=== PATIENT | female | born 1975 | race African-American/Black ===

== ENCOUNTER 2016-04-26 20:39 | Emergency (ER) | payer OTHER ==
[~2016-04-26] VITALS: Ht 162.6 cm; Wt 95.3 kg
[~2016-04-26 20:39] MED LIST: BENADRYL25 MG ORAL; KEFLEX500 MG ORAL; NORCO 5-325 TA1 EACH ORAL; PHENERGAN6.25 MG/5 ORAL; TESSALON PERLE100 M2 ORAL; TRIAMCINOLONE A80 GM TP
[2016-04-26 21:12] VITALS: BP 134/85
--- NOTE | 2016-04-26 21:32 | Emergency Room Report ---
History of Present Illness General Chief Complaint: Sore Throat Source: Patient Present Illness [facility] The patient presents with sore throat for 2 days. Her daughter is here also and has been evaluated and felt to have strep. The mom denies any fevers. She states the pain is 8/10 and burning. She is able to swallow. In addition she has inflammation under her armpits the program director group work as taking care of. The swelling is worse at this time and she feels she needs antibiotics. No NVD, joint pain, CP, SOB, cough, dyspnea, rashes (other than armpits), MARTINEZ, dysuria. Allergies: Coded Allergies: No Known Allergies (Unverified , 08/06/14) Patient History Past Medical History: see triage record Social History: Denies: smoking Social History Narrative with daughter Last Menstrual Period: 04/24/15 Now: No Reviewed Nursing Documentation: PMH: Agreed, PSxH: Agreed Nursing Documentation-PMH Past Medical History: No Stated History Hx Hypertension: Yes Review of Systems All Other Systems: negative except mentioned in HPI Physical Exam Vital Signs Date Time Temp Pulse Resp B/P Pulse Ox O2 Delivery O2 Flow Rate FiO2 04/26/16 20:59 97.9 77 16 134/85 100 04/26/16 21:12 Room Air Sp02 EP Interpretation: reviewed, normal General Appearance: well appearing, no apparent distress, GCS 15, non-toxic Head: normocephalic, atraumatic Eyes: bilateral eye PERRL, bilateral eye normal inspection ENT: pharyngeal erythema Neck: full range of motion, supple Respiratory: no respiratory distress, speaking full sentences Cardiovascular #2: 2+ radial (L) Gastrointestinal: normal inspection Musculoskeletal: digits/nails normal, gait/station normal, normal range of motion, no calf tenderness Neurologic: alert, normal gait, grossly normal Psychiatric: mood/affect normal Skin: other - inflamation armpits Medical Decision Making Diagnostic Impression: Primary Impression: Pharyngitis Qualified Codes: J02.9 - Acute pharyngitis, unspecified Additional Impression: Hydradenitis ER Course Patient presents with sore throat with daughter with strep. Clinically, suspect strep. Other etiologies possibly viral. As daughter with strep, will treat with antibiotics. As armpits also inflamed, will treat with MRSA coverage (bactrim). Patient stable for outpatient observation and treatment. Last Vital Signs Date Time Temp Pulse Resp B/P Pulse Ox O2 Delivery O2 Flow Rate FiO2 04/26/16 22:10 97.9 80 16 134/85 100 Room Air Status: unchanged Disposition: HOME, SELF-CARE Condition: Stable Scripts Ibuprofen* (MOTRIN*) 600 Mg Tablet 600 MG ORAL Q6H Y for For Pain, #20 TAB Prov: Florentin Melendez M.D. 04/26/16 Trimethoprim/Sulfamethoxazole 160/800* (BACTRIM DS TABLET*) 1 Each Tablet 1 TAB ORAL TWICE A DAY, #14 TAB Prov: Florentin Melendez M.D. 04/26/16 Florentin Melendez M.D. Apr 26, 2016 21:32
[2016-04-26] MEDS ORDERED: IBUPROFEN600 MG ORAL (21:35)
[2016-04-26] MEDS ORDERED: BACTRIM DS TAB1 EAC1 ORAL (21:35)
[2016-04-26] MEDS ORDERED: Bactrim DS (160mg/800mg) tab ORAL ONE (21:45)
[2016-04-26 22:10] VITALS: BP 134/85
== END 2016-04-26 22:19 | disposition home or self-care (01) ==
LOC: EMR 21:29
DX: J02.9 Acute pharyngitis, unspecified (principal); L73.2 Hidradenitis suppurativa; I10 Essential (primary) hypertension
CPT/HCPCS: 99282

== ENCOUNTER 2016-05-23 19:26 | Emergency (ER) | payer OTHER ==
[~2016-05-23] VITALS: Ht 162.6 cm; Wt 86.2 kg
[~2016-05-23 19:26] MED LIST changes: +BACTRIM DS TAB1 EAC1 ORAL; +IBUPROFEN600 MG ORAL
[2016-05-23] MEDS ORDERED: TRIAMTERENE-HC1 EAC7 ORAL (19:39)
[2016-05-23] MEDS ORDERED: TRUVADA 200 MG1 EAC1 ORAL (19:39)
[2016-05-23] MEDS ORDERED: PREZCOBIX 8001 EACH PO (19:39)
--- NOTE | 2016-05-23 20:04 | Emergency Room Report ---
History of Present Illness General Chief Complaint: Upper Respiratory Illness Present Illness HPI 41-year-old female presents to emergency Department complaining of dry cough x2 days in addition to swelling erythema and tenderness under the left axilla x4 days. Patient denies nausea vomiting fevers or chills. Patient does report that she has frequent infections/abscess is in the axilla bilaterally and sees a utility sales and service manager who has been doing intralesional steroid injections. Patient denies productive sputum, however she does report feeling fine and her throat that she has been unable to cough up and out. Patient has been using over-the- counter cough syrup with no relief. She denies history of asthma, COPD or history of smoking. Denies CP, Palpitations, LOC, AMS, dizziness, Changes in Vision, Sensation, paresthesias, or a sudden severe headache. Allergies: Coded Allergies: No Known Allergies (Unverified , 08/06/14) Patient History Past Medical History: see triage record Past Surgical History: none Pertinent Family History: none Last Menstrual Period: May Now: No Immunizations: UTD Reviewed Nursing Documentation: PMH: Agreed, PSxH: Agreed Nursing Documentation-PMH Hx Hypertension: Yes Review of Systems All Other Systems: negative except mentioned in HPI Physical Exam Vital Signs Date Time Temp Pulse Resp B/P Pulse Ox O2 Delivery O2 Flow Rate FiO2 05/23/16 19:31 97.9 88 16 122/72 100 Room Air Sp02 EP Interpretation: reviewed, normal General Appearance: no apparent distress, alert, GCS 15, non-toxic Head: normocephalic, atraumatic Eyes: bilateral eye PERRL, bilateral eye normal inspection ENT: hearing grossly normal, normal pharynx, no angioedema, normal voice, TMs + canals normal, uvula midline, moist mucus membranes Neck: full range of motion, no meningismus, no bony tend, supple/symm/no masses Respiratory: chest non-tender, lungs clear, normal breath sounds, speaking full sentences Cardiovascular #1: regular rate, rhythm, no edema Gastrointestinal: no rebound Musculoskeletal: back normal, gait/station normal, normal range of motion, non- tender, no calf tenderness Neurologic: alert, oriented x3, responsive, motor strength/tone normal, sensory intact, speech normal Psychiatric: judgement/insight normal, memory normal, mood/affect normal, no suicidal/homicidal ideation Skin: normal color, no rash, warm/dry, well hydrated, other - localized area of erythema, induration and TTP in the left axilla approximately 1.5cm in size. Lymphatic: no adenopathy Procedures Incision and Drainage Incision and Drainage : Consent: Verbal Site: left axilla Blade Size: 11 I & D Procedure: betadine prep Wound Location: axilla Wound's Depth, Shape: superficial Wound Length (cm): 1 Wound Explored: contaminated - purulent d/c Irrigated w/ Saline (ccs): 30 Anesthesia: Lidocaine w/ Epi Volume Anesthetic (ccs): 1 Splint Applied?: No Sling Applied?: No Patient Tolerated: Well Complications: None Medical Decision Making PA Attestation Dr. Melendez is my supervising Physician whom patient management has been discussed with. Diagnostic Impression: Primary Impression: Hydradenitis Additional Impression: Bronchitis, acute Qualified Codes: J20.9 - Acute bronchitis, unspecified ER Course 41-year-old female presents to emergency Department complaining of dry cough x2 days in addition to swelling erythema and tenderness under the left axilla x4 days. Patient denies nausea vomiting fevers or chills. Ddx considered but are not limited to cellulitis, abscess, hydradenitis, URI, bronchitis, Pneumonia, asthma. Vital signs: are WNL, pt. is afebrile H&PE are most consistent with acute viral bronchitis, in addition to hydradenitis of the left axilla. ORDERS: none required at this time, the diagnosis is clinical ED INTERVENTIONS: -I & D. DISCHARGE: At this time pt. is stable for d/c to home. Will provide printed patient care instructions, and any necessary prescriptions. Care plan and follow up instructions have been discussed with the patient prior to discharge. Last Vital Signs Date Time Temp Pulse Resp B/P Pulse Ox O2 Delivery O2 Flow Rate FiO2 05/23/16 19:39 88 16 Room Air 05/23/16 19:31 97.9 122/72 100 Disposition: HOME, SELF-CARE Condition: Stable Referrals: [facility] (PCP) Patient Instructions: Abscess, [id number], Acute Bronchitis, [id number] Additional Instructions: Take medications as directed. Follow up with PCP in 3-5 days Return sooner to ED if new symptoms occur, or current symptoms become worse. Do not drink alcohol, drive, or operate heavy machinery while taking Cough Syrup as this may cause drowsiness. - Please note that this Emergency Department Report was dictated using Minubetoolmaker helper technology software, occasionally this can lead to erroneous entry secondary to interpretation by the dictation equipment. Ciara Rosa May 23, 2016 20:04
[2016-05-23] MEDS ORDERED: BACTRIM DS TAB1 EAC1 ORAL (20:18)
[2016-05-23] MEDS ORDERED: CEPHALEXIN500 MG ORAL (20:18)
[2016-05-23] MEDS ORDERED: ALBUTEROL SULF8.5 GM INH (20:18)
[2016-05-23] MEDS ORDERED: PROMETHAZINE-C118 M1 ORAL (20:18)
[2016-05-23 20:53] VITALS: BP 150/99
== END 2016-05-23 20:53 | disposition home or self-care (01) ==
LOC: EMR 19:50
DX: L73.2 Hidradenitis suppurativa (principal); J20.9 Acute bronchitis, unspecified; I10 Essential (primary) hypertension
CPT/HCPCS: 10060

== ENCOUNTER 2016-08-16 20:30 | Emergency (ER) | payer OTHER ==
[~2016-08-16] VITALS: Ht 162.6 cm; Wt 97.5 kg
[~2016-08-16 20:30] MED LIST changes: +ALBUTEROL SULF8.5 GM INH; +CEPHALEXIN500 MG ORAL; +PREZCOBIX 8001 EACH PO; +PROMETHAZINE-C118 M1 ORAL; +TRIAMTERENE-HC1 EAC7 ORAL; +TRUVADA 200 MG1 EAC1 ORAL
[2016-08-16] MEDS ORDERED: Morphine Sulfate 4mg/ml Inj IVP ONE (21:00)
[2016-08-16] MEDS ORDERED: Ketorolac 30mg Inj IV ONE (21:00)
--- NOTE | 2016-08-16 21:11 | Emergency Room Report ---
History of Present Illness General Chief Complaint: Back Pain-No Injury Source: Patient Present Illness HPI The patient presents with 2 problems. First is that she's had a headache that' s been intermittent for a week. The second is for last 3 days she's had left flank pain and dysuria. She thinks she's had chills but no documented fever. She denies any nausea at this time. She took ibuprofen 800 mg before coming to the emergency department. The pain is a 7/10 pressure and radiates somewhat from her left flank area into the abdomen. No change in bowels. The patient has had urinary tract infections in the past. Her graft she also is complaining about diarrhea. Her last period was July 24. The second problem is a headache which is pounding frontal nonradiating. She has no weakness. She has lost her appetite. Motrin helped minimally. No change vision, URI sy. LNMP = 07/24. No discharge. No chest pain, cough, rashes other joint pain. She has HIV and is taking antivirals. Allergies: Coded Allergies: No Known Allergies (Unverified , 08/06/14) Patient History Past Medical History: see triage record Social History: Denies: alcohol use, drug use, smoking Social History Narrative Her son brought her here Last Menstrual Period: July Reviewed Nursing Documentation: PMH: Agreed, PSxH: Agreed Nursing Documentation-PMH Hx Hypertension: Yes Review of Systems All Other Systems: negative except mentioned in HPI Physical Exam Vital Signs Date Time Temp Pulse Resp B/P Pulse Ox O2 Delivery O2 Flow Rate FiO2 08/16/16 20:43 98.1 84 16 112/69 96 Room Air Sp02 EP Interpretation: reviewed, normal General Appearance: well appearing, no apparent distress, GCS 15 Head: normocephalic Eyes: bilateral eye PERRL, bilateral eye normal inspection ENT: moist mucus membranes Neck: supple Respiratory: lungs clear, normal breath sounds Cardiovascular #1: regular rate, rhythm Cardiovascular #2: 2+ radial (R) Gastrointestinal: normal inspection, normal bowel sounds, non tender, no mass, non-distended, overweight Genitourinary: CVA tenderness (L) Musculoskeletal: back normal, gait/station normal, normal range of motion Neurologic: alert, oriented x3, science professor III-XII nml as tested, motor strength/tone normal, DTRs symmetric, sensory intact, cerebellar normal, normal gait, speech normal Psychiatric: mood/affect normal Skin: normal inspection, warm/dry Medical Decision Making Diagnostic Impression: Primary Impression: Pyelonephritis Additional Impressions: Hypokalemia Headache Qualified Codes: R51 - Headache ER Course Patient presents with R flank pain and headache. She believes that she has a kidney infection. Differential includes pyelonephritis, urinary tract infection , muscle strain, viral syndrome, diverticulitis amongst others. Evaluation will be with labs and urinalysis. She'll be treated with IV hydration and analgesia. Pyuria without leukocytosis. Rocephin started. Improved. Patient stable for outpatient observation and treatment. Laboratory Tests Test 08/16/16 21:05 08/16/16 21:18 Urine Color Pale yellow Urine Appearance Slightly cloudy Urine pH 5 (4.5-8.0) Urine Specific [place] 1.015 (1.005-1.035) Urine Protein 2+ (NEGATIVE) H Urine Glucose (UA) Negative (NEGATIVE) Urine Ketones Negative (NEGATIVE) Urine Occult Blood 1+ (NEGATIVE) H Urine Nitrite Negative (NEGATIVE) Urine Bilirubin Negative (NEGATIVE) Urine Urobilinogen Normal MG/DL (0.0-1.0) Urine Leukocyte Esterase 1+ (NEGATIVE) H Urine RBC 2-4 /HPF (0 - 2) H Urine WBC 30-40 /HPF (0 - 2) H Urine Squamous Epithelial Cells Many /LPF (NONE/OCC) H Urine Bacteria Many /HPF (NONE) H Urine HCG, Qualitative Negative White Blood Count 8.6 K/UL (4.8-10.8) Red Blood Count 4.30 M/UL (4.20-5.40) Hemoglobin 13.6 G/DL (12.0-16.0) Hematocrit 39.0 % (37.0-47.0) Mean Corpuscular Volume 91 FL (80-99) Mean Corpuscular Hemoglobin 31.5 PG (27.0-31.0) H Mean Corpuscular Hemoglobin Concent 34.7 G/DL (32.0-36.0) Red Cell Distribution Width 12.9 % (11.6-14.8) Platelet Count 297 K/UL (150-450) Mean Platelet Volume 6.0 FL (6.5-10.1) L Neutrophils (%) (Auto) 55.9 % (45.0-75.0) Lymphocytes (%) (Auto) 35.5 % (20.0-45.0) Monocytes (%) (Auto) 6.5 % (1.0-10.0) Eosinophils (%) (Auto) 0.9 % (0.0-3.0) Basophils (%) (Auto) 1.2 % (0.0-2.0) Prothrombin Time 10.1 SEC (9.30-11.50) Prothrombin Time INR 1.0 (0.9-1.1) PTT 25 SEC (23-33) Sodium Level 138 mEQ/L (135-145) Potassium Level 3.3 mEQ/L (3.4-4.9) L Chloride Level 100 mEQ/L (98-107) Carbon Dioxide Level 25 mEQ/L (20-30) Anion Gap 13 (5-15) Blood Urea Nitrogen 12 mg/dL (7-23) Creatinine 1.4 mg/dL (0.5-0.9) H Estimate Glomerular Filtration Rate 50.1 mL/min (>60) Glucose Level 77 mg/dL (74-106) Calcium Level 9.1 mg/dL (8.6-10.2) Total Bilirubin 0.8 mg/dL (0.0-1.2) Aspartate Amino Transferase (AST) 74 U/L (5-40) H Alanine Aminotransferase (ALT) 85 U/L (3-33) H Alkaline Phosphatase 90 U/L (35-104) Total Protein 9.3 g/dL (6.6-8.7) H Albumin 3.9 g/dL (3.5-5.2) Globulin 5.4 g/dL Albumin/Globulin Ratio 0.7 (1.0-2.7) L Lipase 36 U/L (< 60) Last Vital Signs Date Time Temp Pulse Resp B/P Pulse Ox O2 Delivery O2 Flow Rate FiO2 08/16/16 23:35 98.1 94 14 123/85 98 Room Air Status: improved Disposition: HOME, SELF-CARE Condition: Improved Scripts Tramadol Hcl* (ULTRAM*) 50 Mg Tablet 50 MG ORAL Q6H Y for For Pain, #10 TAB 0 Refills Prov: Florentin Melendez M.D. 08/16/16 Ibuprofen* (MOTRIN*) 600 Mg Tablet 600 MG ORAL Q6H Y for For Pain, #16 TAB Prov: Florentin Melendez M.D. 08/16/16 Cephalexin* (KEFLEX*) 500 Mg Capsule 500 MG ORAL Q6H, #40 CAP 0 Refills Prov: Florentin Melendez M.D. 08/16/16 Florentin Melendez M.D. August 16, 2016 21:11
[2016-08-16 21:14] LABS: APPEARANCE,URINE SLIGHTLY CLOUDY; KETONES,URINE NEGATIVE (NEGATIVE); LEUKOCYTE ESTERASE ,URINE 1+ (NEGATIVE); NITRITE,URINE NEGATIVE (NEGATIVE); PH,URINE 5 (4.5-8.0); PROTEIN,URINE 2+ (NEGATIVE); UROBILINOGEN,URINE NORMAL MG/DL (0.0-1.0)
[2016-08-16 21:25] VITALS: BP 133/83
[2016-08-16 21:40] LABS: BACTERIA,URINE MANY /HPF; SQUAMOUS EPITHELIAL CELL,UR MANY /LPF (NONE/OCC); WBC,URINE 30-40 /HPF (0 - 2)
[2016-08-16 21:41] LABS: BASOPHILS % (AUTO) 1.2 % (0.0-2.0); EOSINOPHILS % (AUTO) 0.9 % (0.0-3.0); LYMPHOCYTES % (AUTO) 35.5 % (20.0-45.0); MEAN CORPUSCULAR HEMOGLOBIN 31.5 PG (27.0-31.0); MEAN CORPUSCULAR HGB CONC 34.7 G/DL (32.0-36.0); MEAN CORPUSCULAR VOLUME 91 FL (80-99); MONOCYTES % (AUTO) 6.5 % (1.0-10.0); NEUTROPHILS % (AUTO) 55.9 % (45.0-75.0); PLATELET COUNT 297 K/UL (150-450); RED CELL DISTRIBUTION WIDTH 12.9 % (11.6-14.8); WHITE BLOOD COUNT 8.6 K/UL (4.8-10.8)
[2016-08-16 21:52] LABS: PROTHROMBIN TIME 10.1 SEC (9.30-11.50)
[2016-08-16 22:13] LABS: CALCIUM 9.1 mg/dL (8.6-10.2); CREATININE 1.4 mg/dL (0.5-0.9); GLOMERULAR FILTRATION RATE 50.1 mL/min (>60); POTASSIUM 3.3 mEQ/L (3.4-4.9); TOTAL PROTEIN 9.3 g/dL (6.6-8.7)
[2016-08-16] MEDS ORDERED: cefTRIAXone 1 GM in NS 55 ML IVPB ONE (22:15)
[2016-08-16 22:36] LABS: ALBUMIN/GLOBULIN RATIO 0.7 (1.0-2.7)
[2016-08-16] MEDS ORDERED: KEFLEX500 MG ORAL (23:24)
[2016-08-16] MEDS ORDERED: TRAMADOL HCL50 MG ORAL (23:24)
[2016-08-16] MEDS ORDERED: IBUPROFEN600 MG ORAL (23:24)
[2016-08-16] MEDS ORDERED: KCl 10% 40mEq/30ml liquid ORAL STA (23:28)
[2016-08-16 23:35] VITALS: BP 123/85
== END 2016-08-16 23:35 | disposition home or self-care (01) ==
LOC: EMR 21:10
DX: N12 Tubulo-interstitial nephritis, not specified as acute or chronic (principal); E87.6 Hypokalemia; R19.7 Diarrhea, unspecified; R51 Headache; I10 Essential (primary) hypertension
CPT/HCPCS: 36415; 80053; 81003; 81025; 83690; 85025; 85610; 85730; 87086; 87181; 96374; 96375; 99284; J0696; J1885; J2270; J2405

== ENCOUNTER 2016-09-22 20:59 | Emergency (ER) | payer OTHER ==
[~2016-09-22] VITALS: Ht 162.6 cm; Wt 90.7 kg
[~2016-09-22 20:59] MED LIST changes: +TRAMADOL HCL50 MG ORAL
[2016-09-22 22:00] VITALS: BP 153/98
[2016-09-22] MEDS ORDERED: BACTRIM DS TAB1 EAC1 ORAL (22:21)
[2016-09-22 22:45] VITALS: BP 122/86
--- NOTE | 2016-09-22 23:00 | Emergency Room Report ---
History of Present Illness General Chief Complaint: Skin Rash/Abscess Source: Patient Present Illness HPI 41YOF walk-in with 3-4 days worsening swelling, pain to bilateral armpits. History of hidradenitis. States resolution usually with Bactrim. Does not have gen surg physician currently. Denies fever/chills. Allergies: Coded Allergies: No Known Allergies (Unverified , 08/06/14) Patient History Past Medical History: see triage record, old chart reviewed Past Surgical History: none Pertinent Family History: none Social History: Denies: alcohol use, drug use, smoking Last Menstrual Period: LAST WEEK Now: No Immunizations: UTD Reviewed Nursing Documentation: PMH: Agreed, PSxH: Agreed Nursing Documentation-PMH Hx Hypertension: Yes Review of Systems All Other Systems: negative except mentioned in HPI Physical Exam Vital Signs Date Time Temp Pulse Resp B/P Pulse Ox O2 Delivery O2 Flow Rate FiO2 09/22/16 21:25 98.4 82 18 153/98 97 Room Air Sp02 EP Interpretation: reviewed, normal General Appearance: normal inspection, well appearing, no apparent distress, alert, GCS 15, non-toxic Head: normocephalic, atraumatic Eyes: bilateral eye EOMI, bilateral eye PERRL ENT: normal ENT inspection, hearing grossly normal, normal voice Neck: normal inspection, full range of motion, supple, no bony tend Respiratory: normal inspection, lungs clear, normal breath sounds, no respiratory distress, no retraction, no wheezing Cardiovascular #1: regular rate, rhythm, no edema Gastrointestinal: normal inspection, normal bowel sounds, non tender, soft, no guarding, no hernia Genitourinary: no CVA tenderness Musculoskeletal: normal inspection, back normal, normal range of motion, Orlin' s Sign negative Neurologic: normal inspection, alert, oriented x3, responsive, environmental air specialist III-XII nml as tested, motor strength/tone normal, speech normal Psychiatric: normal inspection, judgement/insight normal, mood/affect normal Skin: other - Bilateral armpits: multiple areas of induration and small 1cm abscesses too numerous to count. Medical Decision Making Diagnostic Impression: Primary Impression: Hydradenitis ER Course 41YOF with acute on chronic bilateral armpit hidradenitis suppurativa VSS. Afebrile. No systemic signs and symptoms Rx bactrim Provided contact info for Dr Strange for Surgery consult DC home Last Vital Signs Date Time Temp Pulse Resp B/P Pulse Ox O2 Delivery O2 Flow Rate FiO2 09/22/16 22:45 98.2 79 17 122/86 100 Room Air Status: improved Disposition: HOME, SELF-CARE Condition: Improved Scripts Trimethoprim/Sulfamethoxazole 160/800* (BACTRIM DS TABLET*) 1 Each Tablet 1 TAB ORAL Q12H for 7 Days, #14 TAB 0 Refills Prov: ORLIN BROOKS M.D. 09/22/16 [facility]errals: [facility] (PCP) Patient Instructions: Hidradenitis Suppurativa Additional Instructions: - Take ALL Bactrim as prescribed - Call Dr Strange for followup appointment for hidradenitis. Phone: [phone] ORLIN BROOKS M.D. Sep 22, 2016 22:59
== END 2016-09-22 22:45 | disposition home or self-care (01) ==
LOC: EMR 22:02
DX: L73.2 Hidradenitis suppurativa (principal); I10 Essential (primary) hypertension
CPT/HCPCS: 99283

== ENCOUNTER 2016-11-19 20:21 | Emergency (ER) | payer OTHER ==
[~2016-11-19] VITALS: Ht 162.6 cm; Wt 90.7 kg
[2016-11-19] MEDS ORDERED: NKM (20:37)
[2016-11-19 21:06] LABS: BASOPHILS % (AUTO) 1.1 % (0.0-2.0); EOSINOPHILS % (AUTO) 1.5 % (0.0-3.0); LYMPHOCYTES % (AUTO) 35.9 % (20.0-45.0); MEAN CORPUSCULAR HEMOGLOBIN 31.8 PG (27.0-31.0); MEAN CORPUSCULAR HGB CONC 34.3 G/DL (32.0-36.0); MEAN CORPUSCULAR VOLUME 92 FL (80-99); MEAN PLATELET VOLUME 6.6 FL (6.5-10.1); MONOCYTES % (AUTO) 6.6 % (1.0-10.0); NEUTROPHILS % (AUTO) 54.8 % (45.0-75.0); PLATELET COUNT 300 K/UL (150-450); RED BLOOD COUNT 4.24 M/UL (4.20-5.40); WHITE BLOOD COUNT 8.6 K/UL (4.8-10.8)
[2016-11-19 21:08] LABS: APPEARANCE,URINE CLEAR; KETONES,URINE NEGATIVE (NEGATIVE); LEUKOCYTE ESTERASE ,URINE 1+ (NEGATIVE); NITRITE,URINE POSITIVE (NEGATIVE); PH,URINE 5 (4.5-8.0); PROTEIN,URINE 3+ (NEGATIVE); UROBILINOGEN,URINE 1 MG/DL (0.0-1.0)
[2016-11-19 21:09] VITALS: BP 119/81
[2016-11-19 21:13] LABS: ICTOTEST POSITIVE
[2016-11-19] MEDS ORDERED: Ketorolac 30mg Inj IV ONE ×2 (21:15)
[2016-11-19 21:24] LABS: WBC,URINE 20-30 /HPF (0 - 2)
[2016-11-19 21:25] LABS: BACTERIA,URINE MODERATE /HPF; SQUAMOUS EPITHELIAL CELL,UR FEW /LPF (NONE/OCC)
[2016-11-19 21:30] LABS: ALANINE AMINOTRANSFERASE 25 U/L (3-33); ALBUMIN/GLOBULIN RATIO 0.6 (1.0-2.7); ANION GAP 9 (5-15); ASPARTATE AMINO TRANSFERASE 37 U/L (5-40); CALCIUM 8.7 mg/dL (8.6-10.2); CARBON DIOXIDE 28 mEQ/L (20-30); CHLORIDE 96 mEQ/L (98-107); GLOMERULAR FILTRATION RATE > 60 mL/min (>60); HEMOLYSIS 10; LIPASE 32 U/L (< 60); POTASSIUM 3.1 mEQ/L (3.4-4.9); SODIUM 133 mEQ/L (135-145); TOTAL PROTEIN 9.6 g/dL (6.6-8.7)
[2016-11-19] MEDS ORDERED: KCl 10% 20 mEq/15ml liquid NG ONE (22:00)
[2016-11-19] MEDS ORDERED: cefTRIAXone 1 GM in NS 55 ML IVPB ONE (22:00)
[2016-11-19] MEDS ORDERED: KEFLEX500 MG ORAL (22:22)
[2016-11-19] MEDS ORDERED: BACTRIM DS TAB1 EAC1 ORAL (22:26)
[2016-11-19 23:10] VITALS: BP 110/78
--- NOTE | 2016-11-19 23:59 | Emergency Room Report ---
History of Present Illness General Chief Complaint: Generalized Weakness Source: Patient Present Illness HPI 41YOF with 1 week of low energy, weakness, dehydration, assoc with dysuria Denies nausea/vomiting, diarrhea, fever/chills, chest pain, SOB, abd pain, sick contacts Allergies: Coded Allergies: No Known Allergies (Unverified , 08/06/14) Patient History Past Medical History: none Past Surgical History: none, other Pertinent Family History: none Social History: Denies: alcohol use, drug use, smoking Last Menstrual Period: 11/09/16 Now: No : 5 Para: 4 Immunizations: UTD Reviewed Nursing Documentation: PMH: Agreed, PSxH: Agreed Nursing Documentation-PMH Hx Hypertension: Yes Review of Systems All Other Systems: negative except mentioned in HPI Physical Exam Vital Signs Date Time Temp Pulse Resp B/P Pulse Ox O2 Delivery O2 Flow Rate FiO2 11/19/16 20:33 98.1 104 14 119/81 97 Room Air Sp02 EP Interpretation: reviewed, normal General Appearance: normal inspection, well appearing, no apparent distress, alert, GCS 15, non-toxic Head: normocephalic, atraumatic Eyes: bilateral eye EOMI, bilateral eye PERRL ENT: normal ENT inspection, hearing grossly normal, normal voice Neck: normal inspection, full range of motion, supple, no bony tend Respiratory: normal inspection, lungs clear, normal breath sounds, no respiratory distress, no retraction, no wheezing Cardiovascular #1: regular rate, rhythm, no edema Gastrointestinal: normal inspection, normal bowel sounds, non tender, soft, no guarding, no hernia Genitourinary: no CVA tenderness Musculoskeletal: normal inspection, back normal, normal range of motion, Orlin' s Sign negative Neurologic: normal inspection, alert, oriented x3, responsive, services clerk III-XII nml as tested, motor strength/tone normal, speech normal Psychiatric: normal inspection, judgement/insight normal, mood/affect normal Skin: normal inspection, normal color, no rash Medical Decision Making Diagnostic Impression: Primary Impression: UTI (urinary tract infection) Qualified Codes: N30.01 - Acute cystitis with hematuria Additional Impressions: Hypokalemia Episode of generalized weakness ER Course Weakness for 1 week - VSS. Afebrile. - Looks well, not systemically ill - UA grossly infected - initial IV Abx given in ED along with Rx Macrobid - HypoK mild, repleted orally in ED DC home PMD followup as needed No leuks or metabolic abnormalities to suggest additional cause No focal neuro deficits Last Vital Signs Date Time Temp Pulse Resp B/P Pulse Ox O2 Delivery O2 Flow Rate FiO2 11/19/16 23:10 98.1 66 14 110/78 97 Room Air Status: improved Disposition: HOME, SELF-CARE Condition: Improved Scripts Trimethoprim/Sulfamethoxazole 160/800* (BACTRIM DS TABLET*) 1 Each Tablet 1 TAB ORAL Q12H for 7 Days, #14 TAB 0 Refills Prov: ORLIN BROOKS M.D. 11/19/16 Cephalexin* (KEFLEX*) 500 Mg Capsule 500 MG ORAL Q12HR for 7 Days, #14 CAP 0 Refills Prov: ORLIN BROOKS M.D. 11/19/16 Patient Instructions: Dysuria Additional Instructions: - Take ALL antibiotics until finished ORLIN BROOKS M.D. Nov 19, 2016 23:59
== END 2016-11-19 22:55 | disposition home or self-care (01) ==
LOC: EMR 20:52
DX: N39.0 Urinary tract infection, site not specified (principal); E87.6 Hypokalemia; R53.1 Weakness; I10 Essential (primary) hypertension
CPT/HCPCS: 36415; 80053; 81003; 81025; 83690; 85025; 87086; 87181; 96374; 96375; 99284; J0696; J1885

== ENCOUNTER 2016-12-18 21:16 | Emergency (ER) | payer OTHER ==
[~2016-12-18] VITALS: Ht 162.6 cm; Wt 103.4 kg
[~2016-12-18 21:16] MED LIST changes: +NKM
[2016-12-18] MEDS ORDERED: DuoNeb 0.5-3(2.5)mg/3ml neb HHN ONE (22:00)
[2016-12-18] MEDS ORDERED: PredniSONE 20mg tab ORAL ONE (22:00)
[2016-12-18] MEDS ORDERED: PREDNISONE20 MG ORAL (22:02)
[2016-12-18] MEDS ORDERED: ALBUTEROL SULF8.5 GM INH (22:02)
--- NOTE | 2016-12-18 22:03 | Emergency Room Report ---
History of Present Illness General Chief Complaint: Upper Respiratory Illness Source: Patient Present Illness HPI This is a 41-year-old female with history of bronchitis. She presents with coughing and shortness of breath the last 2 days. Has runny nose and congestion. No fever but has chills. Worse with exertion. Better with rest. Out of her inhaler. Allergies: Coded Allergies: No Known Allergies (Unverified , 08/06/14) Patient History Past Medical History: see triage record, old chart reviewed Past Surgical History: other Pertinent Family History: none Social History: Denies: smoking Last Menstrual Period: last week Now: No Immunizations: other Reviewed Nursing Documentation: PMH: Agreed, PSxH: Agreed Nursing Documentation-PMH Hx Hypertension: Yes Review of Systems Eye: Denies: eye pain, blurred vision ENT: Denies: ear pain, nose congestion, throat swelling Respiratory: Reports: cough, shortness of breath, wheezing Cardiovascular: Denies: chest pain, palpitations Gastrointestinal: Denies: abdominal pain, diarrhea, nausea, vomiting Musculoskeletal: Denies: back pain, joint pain Skin: Denies: rash Neurological: Denies: headache, numbness Endocrine: Denies: increased thirst, increased urine Hematologic/Lymphatic: Denies: easy bruising All Other Systems: negative except mentioned in HPI Physical Exam Vital Signs Date Time Temp Pulse Resp B/P (MAP) Pulse Ox O2 Delivery O2 Flow Rate FiO2 12/18/16 21:33 98.1 82 18 116/80 97 Room Air vitals normal Sp02 EP Interpretation: reviewed, normal General Appearance: well appearing, no apparent distress, alert Head: normocephalic, atraumatic Eyes: bilateral eye PERRL, bilateral eye EOMI ENT: hearing grossly normal, normal pharynx Neck: full range of motion, supple, no meningismus Respiratory: chest non-tender, wheezing - Slight Cardiovascular #1: regular rate, rhythm, no murmur Gastrointestinal: normal bowel sounds, non tender, no mass, no organomegaly, no bruit, non-distended Musculoskeletal: back normal, gait/station normal, normal range of motion Psychiatric: mood/affect normal Skin: warm/dry Medical Decision Making Diagnostic Impression: Primary Impression: Upper respiratory infection Qualified Codes: J06.9 - Acute upper respiratory infection, unspecified; B97.89 - Other viral agents as the cause of diseases classified elsewhere Additional Impression: Asthma exacerbation ER Course Patient with a viral illness exacerbating her undiagnosed asthma. She said that she has to use her inhaler when she is around smokes and when she a cold. She probably has underlying as on the has not been diagnosed or been diagnosed as bronchitis. We'll discharge home. Better after breathing treatment. No evidence of pneumonia, sepsis, PE, dissection to name a few. Last Vital Signs Date Time Temp Pulse Resp B/P (MAP) Pulse Ox O2 Delivery O2 Flow Rate FiO2 12/18/16 21:35 82 18 Room Air 12/18/16 21:33 98.1 116/80 97 Status: improved Disposition: HOME, SELF-CARE Condition: Stable Scripts Prednisone* (PREDNISONE*) 20 Mg Tablet 60 MG ORAL DAILY, #12 TAB Prov: TR SAINZ M.D. 12/18/16 Albuterol Sulfate* (ALBUTEROL SULFATE MDI*) 8.5 Gm Hfa.aer.ad 2 PUFF INH Q4H Y for cough/wheezing, #1 EA 0 Refills Prov: TR SAINZ M.D. 12/18/16 Patient Instructions: Upper Respiratory Infection, Adult Additional Instructions: Followup with your DrMika in 3-5 days. Return if symptom worsen. TR SAINZ M.D. Dec 18, 2016 22:03
[2016-12-18 22:14] VITALS: BP 115/70
[2016-12-18 22:15] VITALS: BP 115/70
== END 2016-12-18 22:15 | disposition home or self-care (01) ==
LOC: EMR 22:00
DX: J06.9 Acute upper respiratory infection, unspecified (principal); J45.901 Unspecified asthma with (acute) exacerbation
CPT/HCPCS: 94640; 94664; 99284; J7620

== ENCOUNTER 2017-02-18 01:44 | Emergency (ER) | payer OTHER ==
[~2017-02-18] VITALS: Ht 162.6 cm; Wt 106.1 kg
[~2017-02-18 01:44] MED LIST changes: +PREDNISONE20 MG ORAL
[2017-02-18 01:50] VITALS: BP 148/92
--- NOTE | 2017-02-18 01:51 | Emergency Room Report ---
History of Present Illness General Chief Complaint: Abdominal Pain Source: Patient Present Illness HPI [id number] with known HTN presents with polyuria, dysuria, right flank pain for 3 days No fever/chills Associated with nausea/vomiting - last episode 6 hours prior - and diarrhea No foreign travel or sick contacts No previous Abd/pelvic surgery Frequent UTI per patient Allergies: Coded Allergies: No Known Allergies (Unverified , 08/06/14) Patient History Past Medical History: HTN Past Surgical History: none Pertinent Family History: none Last Menstrual Period: feb 09 Now: No : 5 Immunizations: UTD Reviewed Nursing Documentation: PMH: Agreed, PSxH: Agreed Nursing Documentation-PMH Hx Hypertension: Yes Review of Systems All Other Systems: negative except mentioned in HPI Physical Exam Vital Signs Date Time Temp Pulse Resp B/P (MAP) Pulse Ox O2 Delivery O2 Flow Rate FiO2 02/18/17 01:46 97.9 73 18 148/92 99 Room Air Sp02 EP Interpretation: reviewed, normal General Appearance: normal inspection, well appearing, no apparent distress, alert, GCS 15, non-toxic, obese Head: atraumatic Eyes: bilateral eye PERRL, bilateral eye EOMI ENT: normal ENT inspection, hearing grossly normal, normal voice Neck: normal inspection, full range of motion, supple, no bony tend Respiratory: normal inspection, lungs clear, normal breath sounds, no respiratory distress, no retraction, no wheezing Cardiovascular #1: regular rate, rhythm, no edema Gastrointestinal: normal inspection, normal bowel sounds, non tender, soft, no mass, no organomegaly, no guarding, no hernia, no pulsatile mass, no rebound Genitourinary: CVA tenderness (R) Musculoskeletal: normal inspection, back normal, normal range of motion, Orlin' s Sign negative Neurologic: normal inspection, alert, oriented x3, responsive, 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 nml as tested, motor strength/tone normal, speech normal Psychiatric: normal inspection, judgement/insight normal, mood/affect normal Skin: normal inspection, normal color, no rash Medical Decision Making Diagnostic Impression: Primary Impression: Pyelonephritis Additional Impression: Nausea vomiting and diarrhea ER Course UA grossly infected Clinically has pyleo after IVF hydration and IV zofran, tolerating PO Should be able to complete outpatient Abx Initial IV Abx given in ED DC home Close PMD followup Last Vital Signs Date Time Temp Pulse Resp B/P (MAP) Pulse Ox O2 Delivery O2 Flow Rate FiO2 02/18/17 01:46 97.9 73 18 148/92 99 Room Air Status: improved Disposition: HOME, SELF-CARE Scripts Ondansetron Odt* (ZOFRAN ODT*) 4 Mg Tab.rapdis 4 MG ORAL Q12HR Y for Nausea & Vomiting for 7 Days, #14 TAB 0 Refills Prov: ORLIN BROOKS M.D. 02/18/17 Cephalexin* (KEFLEX*) 500 Mg Capsule 500 MG ORAL BID for 7 Days, #14 CAP 0 Refills Prov: ORLIN BROOKS M.D. 02/18/17 ORLIN BROOKS M.D. Feb 18, 2017 01:51
[2017-02-18 02:06] LABS: BILIRUBIN, URINE NEGATIVE (NEGATIVE); GLUCOSE, URINE (UA) NEGATIVE (NEGATIVE); KETONES,URINE NEGATIVE (NEGATIVE); LEUKOCYTE ESTERASE ,URINE 3+ (NEGATIVE); NITRITE,URINE POSITIVE (NEGATIVE); PH,URINE 6.5 (4.5-8.0); PROTEIN,URINE 3+ (NEGATIVE); UROBILINOGEN,URINE 8 MG/DL (0.0-1.0)
[2017-02-18 02:14] LABS: APPEARANCE,URINE CLOUDY; COLOR,URINE YELLOW
[2017-02-18] MEDS ORDERED: ZOFRAN ODT4 MG ORAL (02:25)
[2017-02-18] MEDS ORDERED: KEFLEX500 MG ORAL (02:25)
[2017-02-18] MEDS ORDERED: cefTRIAXone 1 GM in NS 55 ML IVPB ONE (02:30)
[2017-02-18 02:48] LABS: BASOPHILS % (AUTO) 0.6 % (0.0-2.0); HEMATOCRIT 36.8 % (37.0-47.0); HEMOGLOBIN 11.2 G/DL (12.0-16.0); LYMPHOCYTES % (AUTO) 36.7 % (20.0-45.0); MEAN CORPUSCULAR VOLUME 92 FL (80-99); MONOCYTES % (AUTO) 10.3 % (1.0-10.0); NEUTROPHILS % (AUTO) 50.4 % (45.0-75.0); PLATELET COUNT 225 K/UL (150-450); RED BLOOD COUNT 3.98 M/UL (4.20-5.40); RED CELL DISTRIBUTION WIDTH 12.6 % (11.6-14.8); WHITE BLOOD COUNT 6.2 K/UL (4.8-10.8)
[2017-02-18 03:03] LABS: ALANINE AMINOTRANSFERASE 46 U/L (12-78); ALBUMIN 2.8 G/DL (3.4-5.0); ALBUMIN/GLOBULIN RATIO 0.5 (1.0-2.7); ALKALINE PHOSPHATASE 67 U/L (46-116); ANION GAP 8 mmol/L (5-15); ASPARTATE AMINO TRANSFERASE 55 U/L (15-37); BILIRUBIN,TOTAL 0.6 MG/DL (0.2-1.0); BLOOD UREA NITROGEN 6 mg/dL (7-18); CALCIUM 7.5 MG/DL (8.5-10.1); CARBON DIOXIDE 26 MMOL/L (21-32); CHLORIDE 106 MMOL/L (98-107); CREATININE 0.9 MG/DL (0.55-1.30); SODIUM 140 MMOL/L (136-145)
[2017-02-18 03:17] VITALS: BP 140/58
[2017-02-18 04:03] VITALS: BP 140/58
== END 2017-02-18 04:05 | disposition home or self-care (01) ==
LOC: EMR 01:58
DX: N12 Tubulo-interstitial nephritis, not specified as acute or chronic (principal); R11.2 Nausea with vomiting, unspecified; R19.7 Diarrhea, unspecified; I10 Essential (primary) hypertension
CPT/HCPCS: 36415; 80053; 81003; 81025; 83690; 85025; 87086; 87181; 96361; 96365; 96375; 99284; J2405

== ENCOUNTER 2017-04-05 12:52 | Emergency (ER) | payer OTHER ==
[~2017-04-05] VITALS: Ht 162.6 cm; Wt 104.3 kg
[~2017-04-05 12:52] MED LIST changes: +ZOFRAN ODT4 MG ORAL
[2017-04-05] MEDS ORDERED: NKM (13:14)
[2017-04-05 13:24] VITALS: BP 153/83
--- NOTE | 2017-04-05 13:45 | Emergency Room Report ---
History of Present Illness General Chief Complaint: General Complaint Source: Patient Present Illness HPI 41-year-old female presents to the emergency department complaining of swelling , 6/10 in severity tenderness and palpable bumps in the left inner thigh x2 days. Patient reports history of frequently getting boils in the inner thighs/ groin area x several years. Patient denies fevers, chills, trauma, fall or swollen tender lymph nodes. Patient also reports nonproductive dry cough with nasal congestion and rhinorrhea, and bilateral ear fullness sensation x4 days Denies sore throat, neck pain or stiffness or photophobia . Denies CP, Palpitations, LOC, AMS, dizziness, Changes in Vision, Sensation, paresthesias, or a sudden severe headache. Allergies: Coded Allergies: No Known Allergies (Unverified , 08/06/14) Patient History Past Medical History: see triage record Past Surgical History: none Pertinent Family History: none Last Menstrual Period: 03/07/17 Now: No Immunizations: UTD Reviewed Nursing Documentation: PMH: Agreed, PSxH: Agreed Nursing Documentation-PMH Hx Hypertension: Yes Review of Systems All Other Systems: negative except mentioned in HPI Physical Exam Vital Signs Date Time Temp Pulse Resp B/P (MAP) Pulse Ox O2 Delivery O2 Flow Rate FiO2 04/05/17 13:10 98.1 92 17 153/83 97 Room Air Sp02 EP Interpretation: reviewed, normal General Appearance: no apparent distress, alert, GCS 15, non-toxic Head: normocephalic, atraumatic Eyes: bilateral eye normal inspection, bilateral eye PERRL ENT: hearing grossly normal, normal pharynx, normal voice, TMs + canals normal , uvula midline, nasal congestion Neck: full range of motion, no bony tend, supple/symm/no masses Respiratory: lungs clear, normal breath sounds, no respiratory distress, no wheezing, speaking full sentences Cardiovascular #1: regular rate, rhythm Musculoskeletal: back normal, gait/station normal, normal range of motion, non- tender Neurologic: alert, oriented x3, responsive, sensory intact, speech normal Skin: normal color, no rash, warm/dry, well hydrated, other - no palpable fluctuance, and no LAD. palpable induration approx 1cm left inner thigh and palpated to be somewhat linear/tunneled Lymphatic: no adenopathy Medical Decision Making PA Attestation Dr. Parikh is my supervising Physician whom patient management has been discussed with. Diagnostic Impression: Primary Impression: Viral URI with cough Additional Impression: Hidradenitis suppurativa ER Course 41-year-old female presents to the emergency department complaining of swelling , 6/10 in severity tenderness and palpable bumps in the left inner thigh x2 days. Patient reports history of frequently getting boils in the inner thighs/ groin area x several years. Patient denies fevers, chills, trauma, fall or swollen tender lymph nodes. Patient also reports nonproductive dry cough with nasal congestion and rhinorrhea, and bilateral ear fullness sensation x4 days Denies sore throat, neck pain or stiffness or photophobia . Denies CP, Palpitations, LOC, AMS, dizziness, Changes in Vision, Sensation, paresthesias, or a sudden severe headache. Ddx considered but are not limited to URI, pneumonia, PE, strep pharyngitis, meningitis, cellulitis, abscess, cystic acne, necrotizing fasciitis, insect bite Vital signs: Pt. is afebrile, the remaining VS are WNL H&PE are most consistent with 1) Hidradenitis- no palpable fluctuance, and no LAD. palpable induration approx 1cm left inner thigh and palpated to be somewhat linear/tunneled. 2) URI- no meningeal signs, oropharynx is not involved, no evidence of bacterial infection at this time. ORDERS: none required at this time, the diagnosis is clinical ED INTERVENTIONS: None required at this time. --PT. EDUCATION: Discussed this condition often requires surgical removal of tracts, encouraged patient to followup with primary care Dr. this condition typically has recurrences. Discussed with patient that I recommend hot compresses in addition to the oral antibiotics she will be discharged with. Also discussed with this patient that her upper respiratory symptoms appear viral in nature and will be treated conservatively at home. DISCHARGE: At this time pt. is stable for d/c to home. Will provide printed patient care instructions, and any necessary prescriptions. Care plan and follow up instructions have been discussed with the patient prior to discharge. Last Vital Signs Date Time Temp Pulse Resp B/P (MAP) Pulse Ox O2 Delivery O2 Flow Rate FiO2 04/05/17 13:24 98.1 72 17 153/83 97 Room Air Scripts Pseudoephedrine Hcl* (NEXAFED*) 30 Mg Tablet 30 MG ORAL Q6H Y for congestion, #10 TAB Prov: Ciara Rosa 04/05/17 Codeine/Promethazine Hcl* (PROMETHAZINE-CODEINE SYRUP*) 118 Ml Syrup 5 ML ORAL Q6H Y for For Cough, #118 ML 0 Refills Prov: Ciara Rosa 04/05/17 Clindamycin Hcl (CLINDAMYCIN HCL) 300 Mg Capsule 300 MG ORAL FOUR TIMES A DAY for 7 Days, #28 CAP Prov: Ciara Rosa 04/05/17 Referrals: [facility],REFERRING (PCP) Patient Instructions: Hidradenitis Suppurativa Additional Instructions: Take medications as directed. Follow up with a Primary Care Provider in 3-5 days, even if your symptoms have resolved. --Please review list of primary care clinics, if you do not already have a primary care provider Return sooner to ED if new symptoms occur, or current symptoms become worse. Do not drink alcohol, drive, or operate heavy machinery while taking Cough Syrup as this may cause drowsiness. - Please note that this Emergency Department Report was dictated using v2 [employer] operator technology software, occasionally this can lead to erroneous entry secondary to interpretation by the dictation equipment. Ciara Rosa Apr 05, 2017 13:45
[2017-04-05] MEDS ORDERED: PROMETHAZINE-C118 M1 ORAL (13:47)
[2017-04-05] MEDS ORDERED: NEXAFED30 MG ORAL (13:47)
[2017-04-05] MEDS ORDERED: CLINDAMYCIN HC300 MG ORAL (13:47)
[2017-04-05 14:21] VITALS: BP 153/83
== END 2017-04-05 14:23 | disposition home or self-care (01) ==
LOC: EMR 13:25
DX: L73.2 Hidradenitis suppurativa (principal); J06.9 Acute upper respiratory infection, unspecified; B97.89 Other viral agents as the cause of diseases classified elsewhere; I10 Essential (primary) hypertension
CPT/HCPCS: 99283

== ENCOUNTER 2017-05-23 16:32 | Emergency (ER) | payer MEDICAID, OTHER ==
[~2017-05-23] VITALS: Ht 162.6 cm; Wt 92.1 kg
[~2017-05-23 16:32] MED LIST changes: +CLINDAMYCIN HC300 MG ORAL; +NEXAFED30 MG ORAL
[2017-05-23] MEDS ORDERED: IBUPROFEN600 MG ORAL (17:49)
[2017-05-23] MEDS ORDERED: PROMETHAZINE-C118 M1 ORAL (17:49)
[2017-05-23] MEDS ORDERED: PROAIR HFA8.5 GM INH (17:49)
[2017-05-23 17:54] VITALS: BP 148/88
--- NOTE | 2017-05-23 21:29 | Emergency Room Report ---
History of Present Illness General Chief Complaint: Upper Respiratory Illness Source: Patient Present Illness [facility] The patient is a 42-year-old female with a history of HIV presenting for 3 days of coughing. She is also having headache and fatigue. She is unsure of her CD4 counts and has not been taking her HIV therapy. She denies any fever or chills. She denies known sick contacts or recent travel. She denies other symptoms including hemoptysis, shortness of breath, chest pain, abdominal pain, vomiting Allergies: Coded Allergies: No Known Allergies (Unverified , 08/06/14) Patient History Past Medical History: see triage record Pertinent Family History: none Last Menstrual Period: 05/01/17 Now: No Reviewed Nursing Documentation: PMH: Agreed, PSxH: Agreed Nursing Documentation-PMH Hx Hypertension: Yes Review of Systems All Other Systems: negative except mentioned in HPI Physical Exam Vital Signs Date Time Temp Pulse Resp B/P (MAP) Pulse Ox O2 Delivery O2 Flow Rate FiO2 05/23/17 16:37 98.6 86 16 160/90 96 Room Air Sp02 EP Interpretation: reviewed, normal General Appearance: no apparent distress, alert, GCS 15, non-toxic Head: normocephalic, atraumatic Eyes: bilateral eye normal inspection, bilateral eye PERRL ENT: hearing grossly normal, normal pharynx, no angioedema, normal voice, uvula midline Neck: full range of motion, supple/symm/no masses Respiratory: chest non-tender, lungs clear, no accessory muscle use, decreased breath sounds, speaking full sentences Cardiovascular #1: regular rate, rhythm, no edema Musculoskeletal: back normal, gait/station normal, normal range of motion, non- tender Neurologic: alert, oriented x3, responsive, motor strength/tone normal, sensory intact, speech normal Psychiatric: judgement/insight normal, memory normal, mood/affect normal, no suicidal/homicidal ideation Skin: normal color, no rash, warm/dry, well hydrated Medical Decision Making PA Attestation Dr. Parikh is my supervising physician. Patient management was discussed with my supervising physician Diagnostic Impression: Primary Impression: Cough ER Course The patient is a 42-year-old female with a history of HIV presenting for 3 days of coughing. Differential diagnosis include but not limited to pharyngitis, sinusitis, AOM, bronchitis, PNA PE: afebrile. No tachypnea. No apparent distress. No TTP over maxillary or frontal sinuses. Lungs: decreased breath sounds bilat. No accessory muscle use. No resp distress Heart: RRR, no abnormal heart sounds Ears: external auditory canal clear. Non erythematous. Bilat TM intact. Cone of light present bilat. No bulging of TM. No serous fluid seen. no nasal D/C No cervical lymphad No tonsillar exudate. Uvula midline.Oropharynx non erythematous The patient will be discharged home with a prescription for albuterol, cough medication. She needs to get back on HIV therapy. She understands and [facility] ER precautions given Chest X-Ray Diagnostic Results Chest X-Ray Diagnostic Results : Chest X-Ray Ordered: Yes # of Views/Limited/Complete: 1 View Indication: Other - cough EP Interpretation: Yes NIESHA Xray: Interpretation reviewed, by supervising , and agrees with findings. Interpretation: no consolidation, no effusion, no pneumothorax Impression: No acute disease Electronically Signed by: Lenin Martinez PA-C Last Vital Signs Date Time Temp Pulse Resp B/P (MAP) Pulse Ox O2 Delivery O2 Flow Rate FiO2 05/23/17 17:54 98.6 76 19 148/88 100 Room Air Status: improved Disposition: HOME, SELF-CARE Condition: Improved Scripts Ibuprofen* (MOTRIN*) 600 Mg Tablet 600 MG ORAL Q8H Y for For Pain, #30 TAB 0 Refills Prov: LENIN MARTINEZ P.A. 05/23/17 Codeine/Promethazine Hcl* (PROMETHAZINE-CODEINE SYRUP*) 118 Ml Syrup 5 ML ORAL Q6H Y for For Cough, #118 ML 0 Refills Prov: ROXANNANDIMPLEY P.A. 05/23/17 Albuterol Sulfate* (PROAIR HFA*) 8.5 Gm Hfa.aer.ad 2 PUFFS INH Q6H, #8.5 GM 0 Refills Prov: ROXANNANLENIN P.A. 05/23/17 Patient Instructions: Cough, Adult Additional Instructions: I discussed my findings with the patient. All questions and concerns have been answered. Treatment and medication compliance have been addressed. I advised the patient that they need to follow up with PMD in 3-5 days. Return to ED if symptoms worsen, new symptoms arise, or if needed for any reason. Patient verbalized understanding of discharge instructions. LENIN MARTINEZ May 23, 2017 21:29
--- NOTE | 2017-05-24 10:41 | Diagnostic Imaging Report ---
Indication: Cough Comparison: None A single view chest radiograph was obtained. Findings: Cardiomediastinal appearance is within normal limits for age. Pulmonary vascularity is appropriate. The diaphragmatic contour is smooth and costophrenic angles are sharp. No pleural effusions are identified. The bones are unremarkable. Impression: No acute findings
== END 2017-05-23 18:02 | disposition home or self-care (01) ==
LOC: EMR 17:09
DX: R05 Cough (principal); I10 Essential (primary) hypertension
CPT/HCPCS: 71045; 99283

== ENCOUNTER 2017-06-04 15:12 | Emergency (ER) | payer MEDICAID ==
[~2017-06-04] VITALS: Ht 162.6 cm; Wt 90.7 kg
[~2017-06-04 15:12] MED LIST changes: +PROAIR HFA8.5 GM INH
[2017-06-04 15:50] VITALS: BP 157/97
--- NOTE | 2017-06-04 16:00 | Emergency Room Report ---
History of Present Illness General Chief Complaint: Upper Respiratory Illness Source: Patient, Medical Record Present Illness HPI 42-year-old female presents to the emergency department complaining of persistent cough with intermittent mucus production x2 weeks. Patient reports that she was seen here in the emergency department 2 weeks ago and has not had improvement of her symptoms. Patient also reports 10 out of 10 in severity generalized body-aches and headache. Patient denies acute onset of headache. Denies dizziness, nausea, vomiting neck pain/stiffness or visual changes. She reports history of HIV she states she does not know what her CD4 count is. Pt. reports sore throat however states the cough is her most prominent symptom. She states that she had an appointment today with her doctor however could not see her and rescheduled her for one week. Patient states cough is worse at night and in the morning she denies history of GERD. reports some fevers denies chills. Pt. also reports nasal congestion with frequent rhinorrhea. pt. denies facial pain. Denies CP, Palpitations, Swollen lower extremities, LOC, AMS , dizziness, Changes in Vision, Sensation, paresthesias, or a sudden severe headache. Allergies: Coded Allergies: No Known Allergies (Unverified , 08/06/14) Patient History Past Medical History: see triage record, HIV Past Surgical History: none Pertinent Family History: none Last Menstrual Period: 06/01/17 Now: No Immunizations: UTD Reviewed Nursing Documentation: PMH: Agreed, PSxH: Agreed Nursing Documentation-PMH Past Medical History: No History, Except For Hx Hypertension: Yes Review of Systems All Other Systems: negative except mentioned in HPI Physical Exam Vital Signs Date Time Temp Pulse Resp B/P (MAP) Pulse Ox O2 Delivery O2 Flow Rate FiO2 06/04/17 15:23 98.5 95 18 157/97 98 Room Air 98.4 Sp02 EP Interpretation: reviewed, normal General Appearance: no apparent distress, alert, GCS 15, non-toxic Head: normocephalic, atraumatic Eyes: bilateral eye normal inspection, bilateral eye PERRL ENT: hearing grossly normal, normal voice, TMs + canals normal - moderate cerumen in the left ear canal, uvula midline, nasal congestion - clear rhinorrhea, no purulence, pharyngeal erythema, other - no maxillary or frontal sinus ttp. No tonsillar swelling or exudates. Neck: full range of motion Respiratory: chest non-tender, lungs clear, normal breath sounds, no respiratory distress, no wheezing, decreased breath sounds - bilaterally, speaking full sentences Cardiovascular #1: regular rate, rhythm, no edema Musculoskeletal: back normal, gait/station normal, normal range of motion, non- tender Neurologic: alert, oriented x3, responsive, motor strength/tone normal, sensory intact, speech normal, grossly normal Psychiatric: judgement/insight normal Skin: normal color, no rash, warm/dry, well hydrated Lymphatic: no adenopathy Medical Decision Making PA Attestation Dr. Parikh is my supervising physician whom pt. management has been discussed with. Diagnostic Impression: Primary Impression: Atypical pneumonia Additional Impression: Excessive cerumen in left ear canal ER Course 42-year-old female presents to the emergency department complaining of persistent cough with intermittent mucus production x2 weeks. Patient reports that she was seen here in the emergency department 2 weeks ago and has not had improvement of her symptoms. Patient also reports 10 out of 10 in severity generalized body-aches and headache. Patient denies acute onset of headache. Denies dizziness, nausea, vomiting neck pain/stiffness or visual changes. She reports history of HIV she states she does not know what her CD4 count is. Pt. reports sore throat however states the cough is her most prominent symptom. She states that she had an appointment today with her doctor however could not see her and rescheduled her for one week. Patient states cough is worse at night and in the morning she denies history of GERD. reports some fevers denies chills. Pt. also reports nasal congestion with frequent rhinorrhea. pt. denies facial pain. Denies CP, Palpitations, Swollen lower extremities, LOC, AMS , dizziness, Changes in Vision, Sensation, paresthesias, or a sudden severe headache. Ddx considered but are not limited to URI, pneumonia, PE, strep pharyngitis, meningitis, MAC, Rhizopus, toxoplasmosis just to name a few. Vital signs: Pt. is afebrile, the remaining VS are WNL H&PE are most consistent with Atypical URI- no meningeal signs, oropharynx is not involved, no evidence of bacterial infection at this time. Due to hx of immune compromise, and no relief from symptomatic treatment will treat with abx. Clinically pt. is non-toxic in appearance. NAD. -Reviewed chart from previous visit, pt. treated conservatively for URI, X-ray was unremarkable. ORDERS: none required at this time, the diagnosis is clinical ED INTERVENTIONS: None required at this time. DISCHARGE: At this time pt. is stable for d/c to home. Will provide printed patient care instructions, and any necessary prescriptions. Care plan and follow up instructions have been discussed with the patient prior to discharge. Last Vital Signs Date Time Temp Pulse Resp B/P (MAP) Pulse Ox O2 Delivery O2 Flow Rate FiO2 06/04/17 15:50 95 18 Room Air 06/04/17 15:50 98.4 157/97 98 98.4 Disposition: HOME, SELF-CARE Condition: Stable Scripts Carbamide Peroxide (DEBROX) 15 Ml Drops 10 DROP BOTH EARS TWICE A DAY for 4 Days, #15 ML 0 Refills Prov: Ciara Rosa 06/04/17 Guaifenesin (Guaifenesin) 1,200 Mg Tab.er.12h 1200 MG PO BID, #20 TAB Prov: Ciara Rosa 06/04/17 Oxymetazoline HCl (Afrin) 15 Ml [place] 2 SPRAYS NASAL TWICE A DAY for 3 Days, #15 SPRAY Prov: Ciara Rosa 06/04/17 Azithromycin* (ZITHROMAX*) 250 Mg Tablet 250 MG ORAL DAILY for 5 Days, #6 TAB 0 Refills Prov: Ciara RosaAMika 06/04/17 Codeine/Promethazine Hcl* (PROMETHAZINE-CODEINE SYRUP*) 118 Ml Syrup 5 ML ORAL Q6H Y for For Cough, #120 ML 0 Refills Prov: Ciara Rosa 06/04/17 Patient Instructions: Upper Respiratory Infection, Adult Additional Instructions: Take medications as directed. Follow up with a Primary Care Provider in 3 days, even if your symptoms have resolved. --Please review list of primary care clinics, if you do not already have a primary care provider Return sooner to ED if new symptoms occur, or current symptoms become worse. Do not drink alcohol, drive, or operate heavy machinery while taking Cough Syrup as this may cause drowsiness. - Please note that this Emergency Department Report was dictated using [employer] label inspector technology software, occasionally this can lead to erroneous entry secondary to interpretation by the dictation equipment. Ciara Rosa Jun 04, 2017 16:00
[2017-06-04] MEDS ORDERED: AZITHROMYCIN250 MG ORAL (16:22)
[2017-06-04] MEDS ORDERED: GUAIFENESIN1200 MG PO (16:22)
[2017-06-04] MEDS ORDERED: PROMETHAZINE-C118 M1 ORAL (16:22)
[2017-06-04] MEDS ORDERED: AFRIN NASAL SPR30 ML NASAL (16:22)
[2017-06-04] MEDS ORDERED: DEBROX15 M1 BOTH EARS (16:31)
[2017-06-04 16:40] VITALS: BP 157/97
== END 2017-06-04 16:41 | disposition home or self-care (01) ==
LOC: EMR 16:05
DX: J18.9 Pneumonia, unspecified organism (principal); H61.22 Impacted cerumen, left ear; I10 Essential (primary) hypertension
CPT/HCPCS: 99284

== ENCOUNTER 2017-06-12 05:11 | Emergency (ER) | payer MEDICAID ==
[~2017-06-12] VITALS: Ht 162.6 cm; Wt 100.2 kg
[~2017-06-12 05:11] MED LIST changes: +AFRIN NASAL SPR30 ML NASAL; +AZITHROMYCIN250 MG ORAL; +DEBROX15 M1 BOTH EARS; +GUAIFENESIN1200 MG PO
[2017-06-12 05:25] VITALS: BP 143/88
[2017-06-12] MEDS ORDERED: Albuterol/Ipratropium 3ml neb HHN ONE (05:30)
--- NOTE | 2017-06-12 05:56 | Emergency Room Report ---
History of Present Illness General Chief Complaint: Upper Respiratory Illness Source: Patient Present Illness HPI Patient is a 42-year-old female who presented after increased dry cough. Patient gradual onset of symptoms. She reported having prior history of HIV. She states she prior history of lung disease. The patient denied having any fever. She recently been treated with antibiotics. Patient denied any vomiting. Allergies: Coded Allergies: No Known Allergies (Unverified , 08/06/14) Patient History Past Medical History: see triage record Last Menstrual Period: jun 01 Now: No Reviewed Nursing Documentation: PMH: Agreed, PSxH: Agreed Nursing Documentation-PMH Hx Hypertension: Yes Review of Systems All Other Systems: negative except mentioned in HPI Physical Exam Vital Signs Date Time Temp Pulse Resp B/P (MAP) Pulse Ox O2 Delivery O2 Flow Rate FiO2 06/12/17 05:17 97.8 97 18 143/88 96 Room Air 97.9 06/12/17 05:25 96 General Appearance: well appearing, no apparent distress, alert, GCS 15 Head: normocephalic, atraumatic ENT: hearing grossly normal, normal voice Neck: full range of motion, supple Respiratory: no respiratory distress, speaking full sentences Cardiovascular #1: normal peripheral pulses, regular rate, rhythm, no edema Musculoskeletal: no calf tenderness Neurologic: normal gait Psychiatric: mood/affect normal Skin: no rash Medical Decision Making Diagnostic Impression: Primary Impression: Viral URI with cough ER Course Patient presented for cough. Differential diagnosis included but was not limited to bronchitis, pneumonia, pulmonary embolism, pericarditis, asthma, foreign body. Patient given breathing treatment with some improvement in her cough. The patient had been recently prescribed cough medication. The patient is advised to follow up with primary care doctor in 1-2 days. Patient is advised to return if any worsening condition or if any changes in status that are concerning. This report is dictated with [employer] farm marketer software which may occasionally lead to discrepancies related to use of this software. Last Vital Signs Date Time Temp Pulse Resp B/P (MAP) Pulse Ox O2 Delivery O2 Flow Rate FiO2 06/12/17 05:51 89 18 99 Room Air 21 06/12/17 05:25 97.9 143/88 97.9 Status: improved Disposition: HOME, SELF-CARE Condition: Stable Scripts Guaifenesin/Dextromethorphan* (ADULT WAL-TUSSIN DM SYRUP*) 118 Ml Syrup 5 ML ORAL Q4H, #120 ML Prov: Iván Parikh 06/12/17 Referrals: NON PHYSICIAN (PCP) Iván Parikh Jun 12, 2017 05:56
[2017-06-12] MEDS ORDERED: ADULT WAL-TUSS118 ML ORAL (05:58)
[2017-06-12 06:03] VITALS: BP 143/88
== END 2017-06-12 06:05 | disposition home or self-care (01) ==
LOC: EMR 05:30
DX: J06.9 Acute upper respiratory infection, unspecified (principal); I10 Essential (primary) hypertension
CPT/HCPCS: 94640; 94664; 99282; J7620

== ENCOUNTER 2017-08-24 20:26 | Emergency (ER) | payer MEDICAID, OTHER ==
[~2017-08-24] VITALS: Ht 162.6 cm; Wt 99.8 kg
[~2017-08-24 20:26] MED LIST changes: +ADULT WAL-TUSS118 ML ORAL
[2017-08-24 20:30] VITALS: BP 148/92
[2017-08-24] MEDS ORDERED: UNOBMED (20:37)
[2017-08-24 21:00] VITALS: BP 138/85
--- NOTE | 2017-08-24 21:03 | Emergency Room Report ---
History of Present Illness General Chief Complaint: Upper Respiratory Illness Source: Patient Present Illness HPI This patient complains of congestion, rhinorrhea, and cough or sputum production for the past day. Patient is HIV positive. She states that she has had an increase in her viral load after having been previously undetectable. She states that her HIV regimen didn't change. She is compliant with her HIV meds. Last CD4 count was in the normal range. She denies fever or chills. She denies nausea or vomiting. She denies chest pain. She has no other complaints. Allergies: Coded Allergies: No Known Allergies (Unverified , 08/06/14) Patient History Past Medical History: see triage record, HTN, HIV Past Surgical History: other - Thyroidectomy Social History: Denies: smoking, alcohol use, drug use Last Menstrual Period: 07/30/2017 Reviewed Nursing Documentation: PMH: Agreed; PSxH: Agreed Nursing Documentation-PMH Past Medical History: No History, Except For Hx Hypertension: Yes Review of Systems All Other Systems: negative except mentioned in HPI Physical Exam Vital Signs Date Time Temp Pulse Resp B/P (MAP) Pulse Ox O2 Delivery O2 Flow Rate FiO2 08/24/17 20:30 98.1 81 18 148/92 97 98.1 08/24/17 20:30 Room Air Sp02 EP Interpretation: reviewed, normal General Appearance: no apparent distress, alert, GCS 15, non-toxic Head: normocephalic, atraumatic Eyes: bilateral eye normal inspection, bilateral eye PERRL ENT: hearing grossly normal, normal pharynx, no angioedema, normal voice Neck: full range of motion, supple/symm/no masses Respiratory: chest non-tender, lungs clear, normal breath sounds, no respiratory distress, no retraction, no accessory muscle use, speaking full sentences Cardiovascular #1: regular rate, rhythm, no edema Rectal: deferred Musculoskeletal: back normal, gait/station normal, normal range of motion, non- tender Neurologic: alert, oriented x3, responsive, motor strength/tone normal, sensory intact, speech normal Psychiatric: judgement/insight normal, memory normal, mood/affect normal, no suicidal/homicidal ideation Skin: normal color, no rash, warm/dry, well hydrated Medical Decision Making Diagnostic Impression: Primary Impression: Bronchitis ER Course This patient has a clinical presentation with upper respiratory tract infection/ Bronchitis. The evaluation was very reassuring with a normal lung exam, no respiratory distress, normal pulse oximetry. The patient is immunocompromised at baseline. I am concerned this patient could worsen if she has a bacterial infection, so I will treat her with a course of antibiotics. I will also treat supportively with cough suppressants. No emergency medical condition was identified. Patient is given close return precautions and follow-up instructions. Last Vital Signs Date Time Temp Pulse Resp B/P (MAP) Pulse Ox O2 Delivery O2 Flow Rate FiO2 08/24/17 20:32 98.1 88 18 144/80 96 Room Air 98.1 08/24/17 20:30 Disposition: HOME, SELF-CARE Condition: Improved JAIDEN FLORES D.O. August 24, 2017 21:03
[2017-08-24] MEDS ORDERED: ZITHROMAX250 MG ORAL (21:04)
[2017-08-24] MEDS ORDERED: TESSALON PERLE100 MG ORAL (21:05)
[2017-08-24] MEDS ORDERED: GUAIFENESIN-CO118 M1 ORAL (21:05)
[2017-08-24] MEDS ORDERED: GUAIFENESIN DM118 M1 ORAL (21:13)
[2017-08-24 21:21] VITALS: BP 138/85
== END 2017-08-24 21:21 | disposition home or self-care (01) ==
LOC: EMR 20:59
DX: J40 Bronchitis, not specified as acute or chronic (principal); I10 Essential (primary) hypertension
CPT/HCPCS: 99283

== ENCOUNTER 2017-12-23 21:22 | Emergency (ER) | payer OTHER ==
[~2017-12-23] VITALS: Ht 162.6 cm; Wt 81.6 kg
[~2017-12-23 21:22] MED LIST changes: +GUAIFENESIN DM118 M1 ORAL; +GUAIFENESIN-CO118 M1 ORAL; +TESSALON PERLE100 MG ORAL; +UNOBMED; +ZITHROMAX250 MG ORAL
[2017-12-23 21:55] VITALS: BP 147/90
[2017-12-23] MEDS ORDERED: Morphine Sulfate 4mg/ml Inj (IV USE ONLY) IVP ONE (22:30)
[2017-12-23 23:04] LABS: APPEARANCE,URINE CLEAR; BILIRUBIN, URINE NEGATIVE (NEGATIVE); COLOR,URINE PALE YELLOW; GLUCOSE, URINE (UA) NEGATIVE (NEGATIVE); KETONES,URINE NEGATIVE (NEGATIVE); LEUKOCYTE ESTERASE ,URINE 1+ (NEGATIVE); NITRITE,URINE NEGATIVE (NEGATIVE); PH,URINE 5 (4.5-8.0); PROTEIN,URINE 3+ (NEGATIVE); UROBILINOGEN,URINE NORMAL MG/DL (0.0-1.0)
[2017-12-23 23:19] LABS: BLOOD UREA NITROGEN 12 mg/dL (7-18)
[2017-12-23 23:22] LABS: BASOPHILS % (AUTO) 0.8 % (0.0-2.0); EOSINOPHILS % (AUTO) 0.3 % (0.0-3.0); HEMATOCRIT 36.5 % (37.0-47.0); HEMOGLOBIN 12.3 G/DL (12.0-16.0); LYMPHOCYTES % (AUTO) 22.5 % (20.0-45.0); MEAN CORPUSCULAR VOLUME 88 FL (80-99); MONOCYTES % (AUTO) 7.1 % (1.0-10.0); NEUTROPHILS % (AUTO) 69.4 % (45.0-75.0); PLATELET COUNT 325 K/UL (150-450); RED BLOOD COUNT 4.14 M/UL (4.20-5.40); WHITE BLOOD COUNT 7.6 K/UL (4.8-10.8)
[2017-12-23 23:35] LABS: ANION GAP 12 mmol/L (5-15); CALCIUM 9.7 MG/DL (8.5-10.1); CARBON DIOXIDE 20 MMOL/L (21-32); CHLORIDE 101 MMOL/L (98-107); SODIUM 133 MMOL/L (136-145)
[2017-12-24] MEDS ORDERED: cefTRIAXone 1 GM in NS 55 ML IVPB ONE (00:45)
[2017-12-24] MEDS ORDERED: Lidocaine 1% Plain 30 ml INJ ONE ×2 (00:45→00:46)
[2017-12-24] MEDS ORDERED: Ketorolac 30mg Inj IV ONE (00:45)
--- NOTE | 2017-12-24 01:34 | Emergency Room Report ---
History of Present Illness General Chief Complaint: Headache Source: Patient Present Illness HPI This is a 42-year-old female with a history of hypertension and HIV. CD4 count is normal and his viral load is undetectable. She also has a history of aseptic meningitis and was admitted to the hospital in 2013 for it. She presents with FRONT END ASSISTANT of headache on the left side. Throbbing and sharp in nature. 8 out of 10. No photophobia. Gradual onset. Slight congestion but no other viral symptoms. No fever chills. Has nausea and vomiting. No diarrhea. Nothing made it better. Nothing made it worse. Allergies: Coded Allergies: No Known Allergies (Unverified , 08/06/14) Patient History Past Medical History: see triage record, old chart reviewed, HTN, HIV Past Surgical History: other Pertinent Family History: none Social History: Denies: smoking Last Menstrual Period: 12/17/2017 Now: No Immunizations: other Reviewed Nursing Documentation: PMH: Agreed; PSxH: Agreed Nursing Documentation-PMH Past Medical History: No History, Except For Hx Hypertension: Yes Hx Neurological Problems: Yes - Migraines Review of Systems Eye: Denies: eye pain, blurred vision ENT: Denies: ear pain, nose congestion, throat swelling Respiratory: Denies: cough, shortness of breath Cardiovascular: Denies: chest pain, palpitations Gastrointestinal: Denies: abdominal pain, diarrhea, nausea, vomiting Musculoskeletal: Denies: back pain, joint pain Skin: Denies: rash Neurological: Reports: headache; Denies: numbness Endocrine: Denies: increased thirst, increased urine Hematologic/Lymphatic: Denies: easy bruising All Other Systems: negative except mentioned in HPI Physical Exam Vital Signs Date Time Temp Pulse Resp B/P (MAP) Pulse Ox O2 Delivery O2 Flow Rate FiO2 12/23/17 21:40 98.3 76 19 147/90 94 Room Air 98.2 vitals normal Sp02 EP Interpretation: reviewed, normal General Appearance: well appearing, no apparent distress, alert, obese Head: normocephalic, atraumatic Eyes: bilateral eye PERRL, bilateral eye EOMI ENT: hearing grossly normal, normal pharynx Neck: full range of motion, supple, no meningismus Respiratory: chest non-tender, lungs clear, normal breath sounds Cardiovascular #1: regular rate, rhythm, no murmur Gastrointestinal: normal bowel sounds, non tender, no mass, no organomegaly, no bruit, non-distended Musculoskeletal: back normal, gait/station normal, normal range of motion Psychiatric: mood/affect normal Skin: warm/dry Procedures Lumbar Puncture Consent: Written Location: L4-L5 Anesthesia: 1% Lidocaine Volume Anesthetic (ccs): 10 Prep: bedadine Needle Size: 2 1/2 CSF: clear Post-Procedure: recumbent position Attempts: One Complications: none Patient Tolerated: Well Medical Decision Making Diagnostic Impression: Primary Impression: Headache Qualified Codes: R51 - Headache Additional Impressions: Meningitis, aseptic UTI (urinary tract infection) Qualified Codes: N30.00 - Acute cystitis without hematuria ER Course Patient presents with headache. CSF fluid analysis points toward a septic meningitis but she has no meningeal sign. No fever. No white count. CSF fluid is clear. We'll discharge home. She may have a UTI. I will going put her on antibiotics. Dose of Rocephin given here. Lab Results Impression labs normal CT/MRI/US Diagnostic Results CT/MRI/US Diagnostic Results : Imaging Test Ordered: CT head Impression negative per radiologist Last Vital Signs Date Time Temp Pulse Resp B/P (MAP) Pulse Ox O2 Delivery O2 Flow Rate FiO2 12/24/17 00:57 98.2 12/23/17 21:55 19 147/90 94 Room Air 12/23/17 21:40 76 Status: improved Disposition: HOME, SELF-CARE Condition: Stable Scripts Ibuprofen* (MOTRIN*) 600 Mg Tablet 600 MG ORAL THREE TIMES A DAY, #30 TAB 0 Refills Prov: TR SAINZ M.D. 12/24/17 Cephalexin* (KEFLEX*) 500 Mg Capsule 500 MG ORAL TID, #21 CAP Prov: TR SAINZ M.D. 12/24/17 Hydrocodone/Acetaminophen 5-325* (HYDROCODONE/ACETAMINOPHEN 5-325*) 1 Each Tablet 1 TAB ORAL Q6H PRN for For Pain, #20 TAB 0 Refills Prov: TR SAINZ M.D. 12/24/17 Referrals: NON PHYSICIAN (PCP) Additional Instructions: Follow-up your doctor in 5-7 days. Return if symptom worsen. TR SAINZ M.D. Dec 24, 2017 01:34
[2017-12-24] MEDS ORDERED: HYDROmorphone 1mg/ml Carpuject IVP ONE (01:45)
[2017-12-24] MEDS ORDERED: CEPHALEXIN500 MG ORAL (02:50)
[2017-12-24] MEDS ORDERED: HYDROCODON-ACE1 EA15 ORAL (02:50)
[2017-12-24] MEDS ORDERED: IBUPROFEN600 MG ORAL (02:50)
[2017-12-24 03:05] VITALS: BP 127/81
--- NOTE | 2017-12-24 10:44 | Diagnostic Imaging Report ---
. Indication: Migraine headache, vomiting x7 days, 9 out of 10 pain Technique: Continuous helical CT scanning of the head was performed without intravenous contrast material. Axial and coronal 5 mm sections were generated. Radiation dose was minimized using automated exposure control Dose: Total Dose Length Product - DLP 1339.[address] Dose Index - CTDIvol(s) 70.38 mGy. Comparison: Findings: The ventricular system is normal in size and configuration. There is no shift of midline structures. No abnormal extra-axial fluid collections are noted. There is no evidence of intracerebral bleeding. No other abnormal high or low density areas are noted within the brain. Normal decker-white differentiation. Intact calvarium. Visualized orbits and sinuses are unremarkable. There is a soft tissue mass growing out of the superior superficial right external ear. This measures 2.7 x 1.8 cm Impression: Negative for acute intracranial bleed or mass effect. This agrees with the [facility] preliminary report Right external ear mass incidentally noted. This should be clinically evident. This finding was not described on the preliminary report, was reported to Dr. Joyce at the time of interpretation The CT scanner at [facility] is accredited by the [employer] and the scans are performed using protocols designed to limit radiation exposure to as low as reasonably achievable to attain images of sufficient resolution adequate for diagnostic evaluation.
== END 2017-12-24 03:05 | disposition home or self-care (01) ==
LOC: EMR 22:00
DX: R51 Headache (principal); N39.0 Urinary tract infection, site not specified; R11.2 Nausea with vomiting, unspecified; I10 Essential (primary) hypertension; Z21 Asymptomatic human immunodeficiency virus [HIV] infection status
CPT/HCPCS: 36415; 62272; 70450; 80048; 81001; 81025; 82945; 84157; 85025; 87070; 87086; 87181; 87205; 89051; 96365; 96366; 96375; 96376; 99284; J0696; J1170; J1885; J2001; J2270; J2405

== ENCOUNTER 2018-03-07 18:51 | Emergency (ER) | payer OTHER ==
[~2018-03-07] VITALS: Ht 175.3 cm; Wt 124.7 kg
[~2018-03-07 18:51] MED LIST changes: +HYDROCODON-ACE1 EA15 ORAL
[2018-03-07 19:30] VITALS: BP 154/89
[2018-03-07] MEDS ORDERED: PROMETHAZINE-C118 M1 ORAL (19:35)
[2018-03-07] MEDS ORDERED: ALBUTEROL SULF8.5 GM INH (19:35)
[2018-03-07] MEDS ORDERED: PREDNISONE20 MG ORAL (19:35)
[2018-03-07 20:14] LABS: APPEARANCE,URINE CLEAR; BILIRUBIN, URINE NEGATIVE (NEGATIVE); GLUCOSE, URINE (UA) NEGATIVE (NEGATIVE); KETONES,URINE NEGATIVE (NEGATIVE); LEUKOCYTE ESTERASE ,URINE 1+ (NEGATIVE); NITRITE,URINE NEGATIVE (NEGATIVE); PH,URINE 7 (4.5-8.0); PROTEIN,URINE 3+ (NEGATIVE); UROBILINOGEN,URINE 1 MG/DL (0.0-1.0)
[2018-03-07 20:23] LABS: COLOR,URINE YELLOW
[2018-03-07] MEDS ORDERED: CEPHALEXIN500 MG ORAL (20:39)
[2018-03-07 20:42] VITALS: BP 145/82
[2018-03-07 20:43] VITALS: BP 145/82
--- NOTE | 2018-03-07 22:24 | Emergency Room Report ---
History of Present Illness General Chief Complaint: Headache Source: Patient Present Illness HPI 42-year-old female presents ED complaining of cough and congestion times one day. Cough is dry. Complains of sinus pressure and headache. Frontal, 5 out of 10, throbbing, nonradiating. Denies earache or sore throat. Denies nuchal rigidity. Denies fevers or chills. History of HIV but states that she is compliant with her medications. Also complaining of some dysuria for a few days. No other aggravating relieving factors. Denies any other associated symptoms Allergies: Coded Allergies: No Known Allergies (Unverified , 08/06/14) Patient History Past Medical History: HTN, migraines, HIV Past Surgical History: none Pertinent Family History: none Social History: Denies: smoking, alcohol use, drug use Last Menstrual Period: n/a Now: No : 5 Para: 4 Immunizations: UTD Reviewed Nursing Documentation: PMH: Agreed; PSxH: Agreed Nursing Documentation-PMH Hx Hypertension: Yes - htn Hx Neurological Problems: Yes - Migraines Review of Systems All Other Systems: negative except mentioned in HPI Physical Exam Vital Signs Date Time Temp Pulse Resp B/P (MAP) Pulse Ox O2 Delivery O2 Flow Rate FiO2 03/07/18 19:11 97.9 81 16 165/97 100 Room Air Sp02 EP Interpretation: reviewed, normal General Appearance: no apparent distress, alert, GCS 15, non-toxic, obese Head: normocephalic, atraumatic Eyes: bilateral eye normal inspection, bilateral eye PERRL ENT: hearing grossly normal, normal pharynx, no angioedema, normal voice Neck: full range of motion, supple/symm/no masses Respiratory: chest non-tender, lungs clear, normal breath sounds, speaking full sentences Cardiovascular #1: regular rate, rhythm, no edema Cardiovascular #2: 2+ carotid (R), 2+ carotid (L), 2+ radial (R), 2+ radial (L) , 2+ dorsalis pedis (R), 2+ dorsalis pedis (L) Gastrointestinal: normal bowel sounds, non tender, soft, non-distended, no guarding, no rebound Rectal: deferred Genitourinary: normal inspection, no CVA tenderness Musculoskeletal: back normal, gait/station normal, normal range of motion, non- tender Neurologic: alert, oriented x3, responsive, motor strength/tone normal, sensory intact, speech normal Psychiatric: judgement/insight normal, memory normal, mood/affect normal, no suicidal/homicidal ideation Reflexes: 3+ bicep (R), 3+ bicep (L), 3+ tricep (R), 3+ tricep (L), 3+ knee (R) , 3+ knee (L) Skin: normal color, no rash, warm/dry, well hydrated Lymphatic: no adenopathy Medical Decision Making Diagnostic Impression: Primary Impression: Bronchitis Additional Impression: UTI (urinary tract infection) Qualified Codes: N39.0 - Urinary tract infection, site not specified ER Course Hospital Course 42-year-old female presents to ED complaining of cough, congestion,+ dysyrua Differential diagnoses include: URI, pharyngitis, otitis media, asthma Clinical course Patient placed on stretcher. After initial history, physical exam reveals a female in no acute distress. Bilateral TM unremarkable. No pharyngeal erythema. No tonsillar exudates. No lymphadenopathy. lungs clear. abdomen soft. Clinical findings consistent with bronchitis UA + bacteria. We will treat clinically for UTI Diagnosis - bronchitis, UTI Stable and discharged home with Rx Keflex, prednisone, albuterol, promethazine/ codeine. Instructed to followup with PMD. Return to ED if symptoms recur or worsen Labs Test 03/07/18 19:10 Urine Color Yellow Urine Appearance Clear Urine pH 7 (4.5-8.0) Urine Specific [place] 1.010 (1.005-1.035) Urine Protein 3+ (NEGATIVE) Urine Glucose (UA) Negative (NEGATIVE) Urine Ketones Negative (NEGATIVE) Urine Blood 1+ (NEGATIVE) Urine Nitrite Negative (NEGATIVE) Urine Bilirubin Negative (NEGATIVE) Urine Urobilinogen 1 MG/DL (0.0-1.0) Urine Leukocyte Esterase 1+ (NEGATIVE) Urine RBC 2-4 /HPF (0 - 2) Urine WBC 5-10 /HPF (0 - 2) Urine Squamous Epithelial Cells Few /LPF (NONE/OCC) Urine Bacteria Moderate /HPF (NONE) Urine HCG, Qualitative Negative (NEGATIVE) Last Vital Signs Date Time Temp Pulse Resp B/P (MAP) Pulse Ox O2 Delivery O2 Flow Rate FiO2 03/07/18 20:43 97.9 79 18 145/82 100 Room Air Status: improved Disposition: HOME, SELF-CARE Condition: Stable Scripts Cephalexin* (KEFLEX*) 500 Mg Capsule 500 MG ORAL EVERY 6 HOURS for 7 Days, CAP Prov: Madi Foley MD 03/07/18 Codeine/Promethazine Hcl* (PROMETHAZINE-CODEINE SYRUP*) 118 Ml Syrup 5 ML ORAL Q6H PRN for For Cough, #118 ML 0 Refills Prov: Madi Foley MD 03/07/18 Prednisone* (PREDNISONE*) 20 Mg Tablet 40 MG ORAL DAILY, #10 TAB Prov: Madi Foley MD 03/07/18 Albuterol Sulfate* (ALBUTEROL SULFATE MDI*) 8.5 Gm Hfa.aer.ad 2 PUFF INH Q6H, #1 EA 0 Refills Prov: Madi Foley MD 03/07/18 Referrals: [facility],REFERRING (PCP) Patient Instructions: Acute Bronchitis, [id number] Madi Foley MD Mar 07, 2018 22:24
== END 2018-03-07 20:43 | disposition home or self-care (01) ==
LOC: EMR 19:49
DX: J40 Bronchitis, not specified as acute or chronic (principal); N39.0 Urinary tract infection, site not specified; I10 Essential (primary) hypertension; Z21 Asymptomatic human immunodeficiency virus [HIV] infection status
CPT/HCPCS: 81003; 81025; 87086; 99283

== ENCOUNTER 2018-05-10 13:26 | Emergency (ER) | payer OTHER ==
[~2018-05-10] VITALS: Ht 162.6 cm; Wt 90.7 kg
--- NOTE | 2018-05-10 13:48 | NUR ---
ED Nurse Note: Patient walked into ED from home c/o flu like symptoms for 2 days, reports HIV patient.
[2018-05-10] MEDS ORDERED: TAMIFLU75 MG ORAL (13:57)
[2018-05-10] MEDS ORDERED: TYLENOL EXTRA500 MG ORAL (13:57)
[2018-05-10] MEDS ORDERED: TESSALON PERLE100 MG ORAL (13:57)
--- NOTE | 2018-05-10 13:58 | Emergency Room Report ---
History of Present Illness General Chief Complaint: Flu Like Symptoms Source: Patient Present Illness HPI 43-year-old female patient presents the ER complaining of cough and flulike symptoms for the past 2 days. Reports cough with sputum. Denies hemoptysis. Denies calf pain. Denies neck pain. Denies recent travel. Reports sick contacts at home with similar symptoms. Reports sore throat and earache during this time. Denies fever, chest pain, shortness of breath. Reports history of HIV, states she has been taking her medications, does not know what her current CD4 count and viral load is but states that last time she was checked it was "good". Reports history of asthma, states is not having breathing difficulties at this time. Reports has an inhaler that she uses at home when she is having difficult breathing difficulties. Denies other aggravating or relieving factors. Denies history of [place]. States did not receive flu vaccine this year. Allergies: Coded Allergies: No Known Allergies (Unverified , 08/06/14) Patient History Past Medical History: see triage record Last Menstrual Period: Apr 2018 Reviewed Nursing Documentation: PMH: Agreed; PSxH: Agreed Nursing Documentation-PMH Past Medical History: No History, Except For Hx Hypertension: Yes - htn Hx Neurological Problems: Yes - Migraines Review of Systems All Other Systems: negative except mentioned in HPI Physical Exam Vital Signs Date Time Temp Pulse Resp B/P (MAP) Pulse Ox O2 Delivery O2 Flow Rate FiO2 05/10/18 13:38 98.1 81 16 128/90 96 Sp02 EP Interpretation: reviewed, normal General Appearance: well appearing, no apparent distress, alert, GCS 15, non- toxic Head: normocephalic, atraumatic Eyes: bilateral eye normal inspection, bilateral eye PERRL ENT: hearing grossly normal, normal pharynx, no angioedema, normal voice, TMs + canals normal, uvula midline, moist mucus membranes Neck: full range of motion, no meningismus, no bony tend Respiratory: lungs clear, normal breath sounds, no rhonchi, no respiratory distress, no accessory muscle use, no wheezing, speaking full sentences Cardiovascular #1: regular rate, rhythm, no edema Musculoskeletal: back normal, digits/nails normal, gait/station normal, normal range of motion, non-tender, no calf tenderness, Orlin's Sign negative Neurologic: alert, oriented x3, responsive, motor strength/tone normal, sensory intact Psychiatric: mood/affect normal Skin: no rash, other - Large keloid over right earlobe Lymphatic: no adenopathy Medical Decision Making PA Attestation Dr. Goel is my supervising Physician whom patient management has been discussed with. Diagnostic Impression: Primary Impression: Influenza-like symptoms ER Course Pt presents to ED c/o cough, sore throat, earache. DDX considered but are not limited to influenza, viral URI, pneumonia, strep throat, rhinitis, sinusitis, otitis media, otitis externa. VITAL SIGNS are WNL, patient is afebrile. ER COURSE: Lungs clear to auscultation, no wheezes, rhonci or rales. patient afebrile. Low suspicion for pneumonia, will not order CXR at this time. no tonsillar exudates, no pharyngeal erythema, history of cough, no fever, no stridor, uvula midline, low suspicion for peritonsillar abscess. Likely viral etiology of symptoms. Symptomatic treatment. drink plenty of fluids. Salt water gargles for sore throat. Followup with PCP for further treatment and/or referral as needed. ER precautions given. DISCHARGE: -Rx given for Tylenol/Acetaminophen -Rx given for Tessalon perles for cough sx. -Rx given for Tamiflu for influenza. At this time pt is stable for d/c to home. Patient is resting comfortably, in no acute distress, nontoxic appearing. Patient to take medications as instructed Will provide with patient care instructions and any necessary prescriptions. Care plan and follow-up instructions provided. Patient instructed to follow-up with primary care provider in 3 - 5 days. Patient questions asked and answered. Patient reports understanding and agreement to treatment plan. ER precautions given. Patient instructed to return to ER immediately for any new or worsening of symptoms including but not limited to increasing SOB, persistent fever, intractable vomiting. - Please note that this Emergency Department Report was dictated using [employer] intelligence officer technology software, occasionally this can lead to erroneous entry secondary to interpretation by the dictation equipment. Last Vital Signs Date Time Temp Pulse Resp B/P (MAP) Pulse Ox O2 Delivery O2 Flow Rate FiO2 05/10/18 13:38 98.1 81 16 128/90 96 Disposition: HOME, SELF-CARE Condition: Stable Scripts Acetaminophen* (TYLENOL EXTRA STRENGTH*) 500 Mg Tablet 500 MG ORAL Q8H PRN for Prn Headache/Temp > 101, #30 TAB 0 Refills Prov: Eduin Mcdaniel 05/10/18 Benzonatate* (TESSALON PERLMil*) 100 Mg Capsule 100 MG ORAL THREE TIMES A DAY for 20 Days, PERLE Prov: Eduin Mcdaniel 05/10/18 Oseltamivir Phosphate (Tamiflu) 75 Mg Capsule 75 MG ORAL TWICE A DAY for 5 Days, #10 CAP Prov: Eduin Mcdaniel 05/10/18 Patient Instructions: Influenza, Adult, [id number] Additional Instructions: Followup with primary care provider in 3 -5 days. Discussed monitoring of labs for CD4 and viral load. Drink plenty fluids. Take medications as directed. Patient questions asked and answered. ER precautions given, patient instructed to return to ER immediately for any new or worsening of symptoms. Eduin Mcdaniel May 10, 2018 13:58
[2018-05-10 14:03] VITALS: BP 128/90
--- NOTE | 2018-05-10 14:05 | NUR ---
ED Nurse Note: Patient is being discharged cleared by ERMD. discharge paper/instruction given to the patient, patient verbalized understanding. patient a/o x4, ambulated out of Ed with steady gait, with all belongings. ID band removed.
[2018-05-10 14:55] VITALS: BP 128/90
== END 2018-05-10 14:02 | disposition home or self-care (01) ==
LOC: EMR 14:02
DX: J11.1 Influenza due to unidentified influenza virus with other respiratory manifestations (principal); I10 Essential (primary) hypertension
CPT/HCPCS: 99282

== ENCOUNTER 2018-07-01 22:03 | Emergency (ER) | payer OTHER ==
[~2018-07-01] VITALS: Ht 162.6 cm; Wt 102.5 kg
[~2018-07-01 22:03] MED LIST changes: +TAMIFLU75 MG ORAL; +TYLENOL EXTRA500 MG ORAL
--- NOTE | 2018-07-01 22:27 | NUR ---
ED Nurse Note: Patient presents with complaints of coughing ans wheezing x 3 days. reveals history of bronchitis.
[2018-07-01 22:28] VITALS: BP 149/94
[2018-07-01] MEDS ORDERED: PREDNISONE20 MG ORAL (22:53)
--- NOTE | 2018-07-01 22:53 | Emergency Room Report ---
History of Present Illness General Chief Complaint: Upper Respiratory Illness Source: Patient Present Illness HPI Is a 43-year-old female with history of asthma. She presents with chief complaint of coughing and wheezing. Onset for last 3 days. Better with her inhaler. Was with inspiration. No nausea no vomiting. Coughing is clear. Denies any other complaint. Allergies: Coded Allergies: No Known Allergies (Unverified , 08/06/14) Patient History Past Medical History: see triage record, old chart reviewed, asthma Past Surgical History: none Pertinent Family History: none Social History: Denies: smoking Last Menstrual Period: may Now: No : 5 Para: 4 Immunizations: other Reviewed Nursing Documentation: PMH: Agreed; PSxH: Agreed Nursing Documentation-PMH Hx Hypertension: Yes - htn Hx Neurological Problems: Yes - Migraines Review of Systems Eye: Denies: eye pain, blurred vision ENT: Denies: ear pain, nose congestion, throat swelling Respiratory: Reports: cough, shortness of breath, wheezing Cardiovascular: Denies: chest pain, palpitations Gastrointestinal: Denies: abdominal pain, diarrhea, nausea, vomiting Musculoskeletal: Denies: back pain, joint pain Skin: Denies: rash Neurological: Denies: headache, numbness Endocrine: Denies: increased thirst, increased urine Hematologic/Lymphatic: Denies: easy bruising All Other Systems: negative except mentioned in HPI Physical Exam Vital Signs Date Time Temp Pulse Resp B/P (MAP) Pulse Ox O2 Delivery O2 Flow Rate FiO2 07/01/18 22:17 98.1 76 16 149/94 96 Room Air vitals normal Sp02 EP Interpretation: reviewed, normal General Appearance: well appearing, no apparent distress, alert Head: normocephalic, atraumatic Eyes: bilateral eye PERRL, bilateral eye EOMI ENT: hearing grossly normal, normal pharynx Neck: full range of motion, supple, no meningismus Respiratory: chest non-tender, lungs clear, normal breath sounds Cardiovascular #1: regular rate, rhythm, no murmur Gastrointestinal: normal bowel sounds, non tender, no mass, no organomegaly, no bruit, non-distended Musculoskeletal: back normal, gait/station normal, normal range of motion Psychiatric: mood/affect normal Skin: warm/dry Medical Decision Making Diagnostic Impression: Primary Impression: Asthma exacerbation Qualified Codes: J45.21 - Mild intermittent asthma with (acute) exacerbation ER Course Patient with upper respiratory infection with wheezing. No evidence of pneumonia, ACS, PE, dissection to name a few. We'll discharge home. Last Vital Signs Date Time Temp Pulse Resp B/P (MAP) Pulse Ox O2 Delivery O2 Flow Rate FiO2 07/01/18 22:28 76 16 Room Air 07/01/18 22:28 98.1 149/94 96 Status: unchanged Disposition: HOME, SELF-CARE Condition: Stable Scripts Prednisone* (PREDNISONE*) 20 Mg Tablet 40 MG ORAL DAILY, #10 TAB Prov: Alcides Garcia MD 07/01/18 Additional Instructions: Follow-up with your doctor in 7 days. Continue with your inhaler. Return if worse. Alcides Garcia MD Jul 01, 2018 22:53
[2018-07-01 22:58] VITALS: BP 149/94
--- NOTE | 2018-07-01 22:58 | NUR ---
ED Nurse Note: Patient cleared for discharge, ambulatory with steady gait, no s/s/ of acue distress. patient verbalized understanding of discharge instructions.
== END 2018-07-01 22:58 | disposition home or self-care (01) ==
LOC: EMR 22:56
DX: J45.901 Unspecified asthma with (acute) exacerbation (principal); I10 Essential (primary) hypertension
CPT/HCPCS: 99281

== ENCOUNTER 2018-07-12 17:19 | Emergency (ER) | payer OTHER ==
[~2018-07-12] VITALS: Ht 162.6 cm; Wt 99.8 kg
[2018-07-12 17:29] VITALS: BP 152/98
--- NOTE | 2018-07-12 17:39 | NUR ---
ED Nurse Note: Patient walked into ED c/o flu like symptoms for 2 days patient has been coughing which gives her pain. patient denies having fever alert awake x4, ambulatory.
[2018-07-12] MEDS ORDERED: Ketorolac 30mg Inj IM ONE (17:45)
[2018-07-12] MEDS ORDERED: SUDAFED PE PRE1 EACH PO (17:50)
[2018-07-12] MEDS ORDERED: IBUPROFEN600 MG ORAL (17:50)
[2018-07-12] MEDS ORDERED: TAMIFLU75 MG ORAL (17:50)
[2018-07-12] MEDS ORDERED: TESSALON PERLE100 MG ORAL (17:50)
--- NOTE | 2018-07-12 17:50 | Emergency Room Report ---
History of Present Illness General Chief Complaint: Flu Like Symptoms Source: Patient Present Illness HPI 43-year-old female patient presents ER complaining of "I think I have the flu" for the past 2 days. Reports cough with sputum. Denies hemoptysis. Denies fever. Also complaining of sore throat during this time. Able to eat and drink without difficulty. Denies chest pain or shortness of breath. Denies abdominal pain. Denies vomiting or diarrhea. Reports history of HIV, states she recently had her labs drawn and has follow-up with her doctor on Wednesday. Reports is been taking her medication as instructed. Denies recent travel outside the country. Denies sick contacts at home. Reports generalized aches and pains. Denies dysuria, hematuria. Denies other aggravating or relieving factors. States is not taking medication for relief of symptoms. Reports history of asthma, states has not had to use her inhaler. Reports feeling "congested". Allergies: Coded Allergies: No Known Allergies (Unverified , 08/06/14) Patient History Past Medical History: see triage record Last Menstrual Period: 07/03/18 Now: No Reviewed Nursing Documentation: PMH: Agreed; PSxH: Agreed Nursing Documentation-PMH Past Medical History: No History, Except For Hx Hypertension: Yes - htn Hx Neurological Problems: Yes - Migraines Review of Systems All Other Systems: negative except mentioned in HPI Physical Exam Vital Signs Date Time Temp Pulse Resp B/P (MAP) Pulse Ox O2 Delivery O2 Flow Rate FiO2 07/12/18 17:29 98.2 80 20 162/102 95 Room Air Sp02 EP Interpretation: reviewed, normal General Appearance: well appearing, no apparent distress, alert, GCS 15, non- toxic Head: normocephalic, atraumatic Eyes: bilateral eye normal inspection, bilateral eye PERRL ENT: hearing grossly normal, normal pharynx, no angioedema, normal voice, TMs + canals normal, uvula midline, moist mucus membranes Neck: full range of motion, no meningismus, no bony tend Respiratory: lungs clear, normal breath sounds, no rhonchi, no respiratory distress, no accessory muscle use, no wheezing, speaking full sentences Cardiovascular #1: regular rate, rhythm, no edema, normal capillary refill Gastrointestinal: non tender, soft, no mass, non-distended, no guarding, no rebound Genitourinary: no CVA tenderness Musculoskeletal: back normal, digits/nails normal, gait/station normal, normal range of motion, non-tender Neurologic: alert, oriented x3, responsive, motor strength/tone normal, sensory intact Psychiatric: mood/affect normal Skin: no rash, normal turgor Lymphatic: no adenopathy Medical Decision Making PA Attestation Dr. Parikh is my supervising Physician whom patient management has been discussed with. Diagnostic Impression: Primary Impression: Influenza-like symptoms ER Course Pt presents to ED c/o "I think I have the flu". DDX considered but are not limited to influenza, viral URI, pneumonia, strep throat, rhinitis, sinusitis, otitis media, otitis externa. VITAL SIGNS are WNL, patient is afebrile. ER COURSE: Provide with shot of Toradol for pain symptoms. Lungs clear to auscultation, no wheezes, rhonci or rales. patient afebrile. Low suspicion for pneumonia, will not order CXR at this time. Declined need for breathing treatment. no tonsillar exudates, no pharyngeal erythema, history of cough, no fever, no stridor, uvula midline, low suspicion for peritonsillar abscess or pharyngitis. Likely viral etiology of symptoms. Symptomatic treatment. drink plenty of fluids. Salt water gargles for sore throat. Followup with PCP for further treatment and/or referral as needed. ER precautions given. Follow-up with primary care provider on Wednesday at schedule appointment to discuss further treatment and referral as needed. DISCHARGE: At this time pt is stable for d/c to home. Patient is resting comfortably, in no acute distress, nontoxic appearing. Patient to take medications as instructed Will provide with patient care instructions and any necessary prescriptions. Care plan and follow-up instructions provided. Patient instructed to follow-up with primary care provider in 3 - 5 days. Patient questions asked and answered. Patient reports understanding and agreement to treatment plan. ER precautions given. Patient instructed to return to ER immediately for any new or worsening of symptoms including but not limited to increasing SOB, persistent fever, intractable vomiting. - Please note that this Emergency Department Report was dictated using EarlyDocvegetable buncher technology software, occasionally this can lead to erroneous entry secondary to interpretation by the dictation equipment. Last Vital Signs Date Time Temp Pulse Resp B/P (MAP) Pulse Ox O2 Delivery O2 Flow Rate FiO2 4/2/19 17:29 98.2 80 20 162/102 95 Room Air Status: improved Disposition: HOME, SELF-CARE Condition: Stable Scripts D-Methorphan/PE/Acetaminophen (Sudafed PE Pressure+Pain+Cough) 1 Each Tablet 1 EACH PO BID, #24 TAB Prov: Eduin Mcdaniel 07/12/18 Benzonatate* (TESSALON PERLE*) 100 Mg Capsule 100 MG ORAL THREE TIMES A DAY, #30 PERLE Prov: Eduin Mcdaniel 07/12/18 Ibuprofen* (MOTRIN*) 600 Mg Tablet 600 MG ORAL Q8H PRN for For Pain, #30 TAB 0 Refills Prov: Eduin Mcdaniel 07/12/18 Oseltamivir Phosphate (Tamiflu) 75 Mg Capsule 75 MG ORAL TWICE A DAY for 5 Days, #10 CAP Prov: Eduin cMdaniel 07/12/18 Patient Instructions: Influenza, Adult, [id number] Additional Instructions: Followup with primary care provider in 3 -5 days. Drink plenty of fluids. Take Tylenol and/or Motrin for pain and fever symptoms if they present. Take medications as directed. Patient questions asked and answered. ER precautions given, patient instructed to return to ER immediately for any new or worsening of symptoms. Eduin Mcdaniel Jul 12, 2018 17:50
--- NOTE | 2018-07-12 18:40 | NUR ---
ER DISCHARGE NOTE: Patient is cleared to be discharged per ER NIESHA FRIAS, pt is aox4, on room air, with stable vital signs. pt was given dc and prescription instructions, pt was able to verbalize understanding, pt id band removed without complications. pt is able to ambulate with steady gait. pt took all belongings.
[2018-07-12 18:59] VITALS: BP 152/98
== END 2018-07-12 18:40 | disposition home or self-care (01) ==
LOC: EMR 17:47
DX: R05 Cough (principal); R07.0 Pain in throat; I10 Essential (primary) hypertension; B20 Human immunodeficiency virus [HIV] disease
CPT/HCPCS: 96372; 99283; J1885

== ENCOUNTER 2018-08-16 22:56 | Emergency (ER) | payer OTHER ==
[~2018-08-16] VITALS: Ht 162.6 cm; Wt 99.8 kg
[~2018-08-16 22:56] MED LIST changes: +SUDAFED PE PRE1 EACH PO
[2018-08-16] MEDS ORDERED: ATENOLOL25 MG ORAL (23:03)
--- NOTE | 2018-08-16 23:15 | NUR ---
ED Nurse Note: RECIEVED PT FROM HOME, C/O SOB X 2 DAYS WITH INTERMITTENT CP WITH COUGHING, DENIES FEVERS, DIARRHEA, OR ANY OTHER COMPLAINTS, PT HAS HX OF BRONCHITIS AND STATES NEEDS INHALER, PT O2 SAT=97% ON RA.
[2018-08-16] MEDS ORDERED: ALBUTEROL SULF8.5 GM INH (23:23)
[2018-08-16] MEDS ORDERED: ZITHROMAX250 MG ORAL (23:23)
[2018-08-16] MEDS ORDERED: PREDNISONE20 MG ORAL (23:23)
--- NOTE | 2018-08-16 23:23 | Emergency Room Report ---
History of Present Illness General Chief Complaint: Upper Respiratory Illness Source: Patient Present Illness [facility] This is a 43-year-old female with history of HIV. CD4 count is around 700. Viral load is undetectable. She's also has a history asthma. She presents with chief complaint of coughing congestion and wheezing. Onset for last 3-4 days. Fever initially. Coughing is productive of phlegm. Wheezing better with her inhaler. No nausea no vomiting. No pain. Allergies: Coded Allergies: No Known Allergies (Unverified , 08/06/14) Patient History Past Medical History: see triage record, old chart reviewed, asthma, HIV Past Surgical History: other Pertinent Family History: none Social History: Denies: smoking Last Menstrual Period: 08/05/18 Now: No : 4 Para: 4 Immunizations: other Reviewed Nursing Documentation: PMH: Agreed; PSxH: Agreed Nursing Documentation-PMH Past Medical History: No History, Except For Hx Hypertension: Yes - htn Hx Neurological Problems: Yes - Migraines Review of Systems Constitutional: Reports: fever - Subjective Eye: Denies: eye pain, blurred vision ENT: Denies: ear pain, nose congestion, throat swelling Respiratory: Reports: cough, shortness of breath, wheezing Cardiovascular: Denies: chest pain, palpitations Gastrointestinal: Denies: abdominal pain, diarrhea, nausea, vomiting Musculoskeletal: Denies: back pain, joint pain Skin: Denies: rash Neurological: Denies: headache, numbness Endocrine: Denies: increased thirst, increased urine Hematologic/Lymphatic: Denies: easy bruising All Other Systems: negative except mentioned in HPI Physical Exam Vital Signs Date Time Temp Pulse Resp B/P (MAP) Pulse Ox O2 Delivery O2 Flow Rate FiO2 08/16/18 22:57 98.8 77 18 94 Room Air vitals normal Sp02 EP Interpretation: reviewed, normal General Appearance: well appearing, no apparent distress, alert Head: normocephalic, atraumatic Eyes: bilateral eye PERRL, bilateral eye EOMI ENT: hearing grossly normal, normal pharynx Neck: full range of motion, supple, no meningismus Respiratory: chest non-tender, lungs clear, normal breath sounds Cardiovascular #1: regular rate, rhythm, no murmur Gastrointestinal: normal bowel sounds, non tender, no mass, no organomegaly, no bruit, non-distended Musculoskeletal: back normal, gait/station normal, normal range of motion Psychiatric: mood/affect normal Skin: warm/dry Medical Decision Making Diagnostic Impression: Primary Impression: Upper respiratory infection Qualified Codes: J06.9 - Acute upper respiratory infection, unspecified Additional Impression: Asthma Qualified Codes: J45.20 - Mild intermittent asthma, uncomplicated ER Course Patient with upper rest or infection. Most likely viral. Because of her HIV status, we'll put on antibiotics. We'll refill her asthma medication. Last Vital Signs Date Time Temp Pulse Resp B/P (MAP) Pulse Ox O2 Delivery O2 Flow Rate FiO2 08/16/18 22:57 98.8 77 18 94 Room Air Status: unchanged Disposition: HOME, SELF-CARE Condition: Stable Scripts Azithromycin* (ZITHROMAX*) 250 Mg Tablet 250 MG ORAL DAILY, #6 TAB 0 Refills Take two tables once daily for 1 day, then one tablet once daily for 4 days. Prov: Alcides Garcia MD 08/16/18 Prednisone* (PREDNISONE*) 20 Mg Tablet 40 MG ORAL DAILY, #10 TAB Prov: Alcides Garcia MD 08/16/18 Albuterol Sulfate* (ALBUTEROL SULFATE MDI*) 8.5 Gm Hfa.aer.ad 2 PUFF INH Q4H PRN for cough/wheezing, #1 EA 0 Refills Prov: Alcides Garcia MD 08/16/18 Patient Instructions: Upper Respiratory Infection, Adult Additional Instructions: Increase fluids. Follow-up with your doctor in 7 days. Return if worse. Alcides Garcia MD August 16, 2018 23:23
[2018-08-16 23:45] VITALS: BP 155/82
--- NOTE | 2018-08-16 23:45 | NUR ---
ER DISCHARGE NOTE: Patient is cleared to be discharged per ERMD, pt is aox4, on room air, with stable vital signs. pt was given dc and prescription instructions, pt was able to verbalize understanding, pt id band removed without complications. pt is able to ambulate with steady gait. pt took all belongings.
== END 2018-08-16 23:45 | disposition home or self-care (01) ==
LOC: EMR 23:15
DX: J06.9 Acute upper respiratory infection, unspecified (principal); J45.20 Mild intermittent asthma, uncomplicated; B20 Human immunodeficiency virus [HIV] disease; I10 Essential (primary) hypertension
CPT/HCPCS: 99283

== ENCOUNTER 2018-10-06 16:31 | Emergency (ER) | payer OTHER ==
[~2018-10-06] VITALS: Ht 162.6 cm; Wt 102.1 kg
[~2018-10-06 16:31] MED LIST changes: +ATENOLOL25 MG ORAL
[2018-10-06 16:33] VITALS: BP 158/96
--- NOTE | 2018-10-06 16:45 | NUR ---
ED Nurse Note: Patient presents to ER due to painful, red bumps under right armpit x 3 days; reports no fever or chills. Patient attempted to drainage it, but unable to do it at home. Provided privacy.
--- NOTE | 2018-10-06 17:11 | Emergency Room Report ---
History of Present Illness General Chief Complaint: Skin Rash/Abscess Source: Patient Present Illness HPI 43-year-old female presents to the emergency department complaining of 9 out of 10 severity localized pain, swelling, erythema to a small lesion in the right axilla x3 days. Patient reports she has been attempting hot compresses with no relief. Patient has a history of multiple abscess in the past in this area she also has a history of keloid scarring. Patient denies fevers, chills, swollen tender lymph nodes, rash or lesions elsewhere on the body. Denies any other aggravating or relieving factors at this time. Allergies: Coded Allergies: No Known Allergies (Unverified , 08/06/14) Patient History Past Medical History: see triage record Past Surgical History: none Pertinent Family History: none Last Menstrual Period: 09/25/18 Now: No Reviewed Nursing Documentation: PMH: Agreed; PSxH: Agreed Nursing Documentation-PMH Past Medical History: No History, Except For Hx Hypertension: Yes - htn Hx Neurological Problems: Yes - Migraines Review of Systems All Other Systems: negative except mentioned in HPI Physical Exam Vital Signs Date Time Temp Pulse Resp B/P (MAP) Pulse Ox O2 Delivery O2 Flow Rate FiO2 10/06/18 16:33 98.1 81 18 158/96 (116) 98 Room Air Sp02 EP Interpretation: reviewed, normal General Appearance: no apparent distress, alert, GCS 15, non-toxic Head: normocephalic, atraumatic Eyes: bilateral eye normal inspection, bilateral eye PERRL ENT: hearing grossly normal, normal voice Neck: full range of motion Respiratory: lungs clear, normal breath sounds, speaking full sentences Cardiovascular #1: regular rate, rhythm Gastrointestinal: soft Musculoskeletal: back normal, gait/station normal, normal range of motion, non- tender Neurologic: alert, oriented x3, responsive, motor strength/tone normal, sensory intact, speech normal, grossly normal Psychiatric: judgement/insight normal Skin: normal color, no rash, warm/dry, well hydrated, other - 1cm fluctuant palpable abscess in the right axilla. no d/c, mild erythema and warmth. Lymphatic: no adenopathy Procedures Incision and Drainage Incision and Drainage : Consent: Verbal Site: Right Axilla Blade Size: 11 I & D Procedure: betadine prep, sterile drapes applied, sterile dressing applied Wound Location: upper extremity - right axilla Wound's Depth, Shape: linear Wound Length (cm): 1 Wound Explored: contaminated Irrigated w/ Saline (ccs): 20 Anesthesia: Lidocaine w/ Epi Volume Anesthetic (ccs): 2 Splint Applied?: No Sling Applied?: No Patient Tolerated: Well Complications: None Medical Decision Making PA Attestation Dr. oJyce is my supervising Physician whom patient management has been discussed with. Diagnostic Impression: Primary Impression: Hidradenitis suppurativa of right axilla ER Course 43-year-old female presents to the emergency department complaining of 9 out of 10 severity localized pain, swelling, erythema to a small lesion in the right axilla x3 days. Patient reports she has been attempting hot compresses with no relief. Patient has a history of multiple abscess in the past in this area she also has a history of keloid scarring. Patient denies fevers, chills, swollen tender lymph nodes, rash or lesions elsewhere on the body. Denies any other aggravating or relieving factors at this time. Ddx considered but are not limited to cellulitis, hydradenitis Suppurativa, fracture, d/L, gout, abscess Vital signs: are WNL, pt. is afebrile H&PE are most consistent with hydradenitis Suppurativa of the right axilla ORDERS:- None --dx is clinical ED INTERVENTIONS: -I & D -Motrin PO DISPOSITION: at this time pt. will be admitted to Dr. Luo on behalf of Dr. Lynn for hydradenitis Suppurativa. Dr. Luo agreed to admit the pt. and to continue pt. care management. Last Vital Signs Date Time Temp Pulse Resp B/P (MAP) Pulse Ox O2 Delivery O2 Flow Rate FiO2 10/06/18 16:33 98.1 18 158/96 98 Room Air 10/06/18 16:33 81 Disposition: HOME, SELF-CARE Condition: Stable Scripts Trimethoprim/Sulfamethoxazole 160/800* (BACTRIM DS TABLET*) 1 Each Tablet 1 TAB ORAL TWICE A DAY for 7 Days, #14 TAB Prov: Ciara Rosa 10/06/18 Ibuprofen* (MOTRIN*) 600 Mg Tablet 600 MG ORAL THREE TIMES A DAY, #30 TAB 0 Refills Prov: Ciara Rosa 10/06/18 Patient Instructions: Hidradenitis Suppurativa Additional Instructions: Take medications as directed. Follow up with a Primary Care Provider in 3-5 days, even if your symptoms have resolved. --Please review list of primary care clinics, if you do not already have a primary care provider Return sooner to ED if new symptoms occur, or current symptoms become worse. - Please note that this Emergency Department Report was dictated using OpenZineclinical trial head technology software, occasionally this can lead to erroneous entry secondary to interpretation by the dictation equipment. Ciara Rosa Oct 06, 2018 17:11
[2018-10-06] MEDS ORDERED: Lidocaine 1% MPF 10mg/ml 5ml IM ONE (17:15)
[2018-10-06] MEDS ORDERED: VIBRAMYCIN100 MG ORAL ×2 (17:31)
[2018-10-06] MEDS ORDERED: IBUPROFEN600 MG ORAL (17:31)
[2018-10-06 17:45] VITALS: BP 135/75
--- NOTE | 2018-10-06 17:45 | NUR ---
ED Nurse Note: Patient is being discharged from medical care. D/C instruction and prescription given to patient. All questions were answered. ID band removed. Ambulating out with steady gait with all her belongings.
[2018-10-06] MEDS ORDERED: BACTRIM DS TAB1 EAC1 ORAL (17:46)
== END 2018-10-06 17:45 | disposition home or self-care (01) ==
LOC: EMR 17:13
DX: L73.2 Hidradenitis suppurativa (principal); I10 Essential (primary) hypertension
CPT/HCPCS: 10060; 99283; Z7502

== ENCOUNTER 2019-01-30 19:38 | Emergency (ER) | payer OTHER ==
[~2019-01-30] VITALS: Ht 165.1 cm; Wt 122.5 kg
[~2019-01-30 19:38] MED LIST changes: +GYNE-LOTRIMIN45 GM VG; +LIDOCAINE VISC100 ML ORAL; +NITROFURANTOIN100 M2 ORAL; +ONDANSETRON ODT4 MG BC; +PEPCID AC20 M2 PO; +POTASSIUM CHLO10 MEQ ORAL; +TYLENOL325 MG ORAL; +VIBRAMYCIN100 MG ORAL
--- NOTE | 2019-01-30 19:42 | NUR ---
PT CALLED INTO TRIAGE ROOM. PT NOT PRESENT IN WAITING ROOM AT THIS TIME
[2019-01-30 19:44] VITALS: BP 170/87
--- NOTE | 2019-01-30 19:45 | NUR ---
ED Nurse Note: Late entry: PT ambulated to ED w/ breathing difficulty, cough for 1 day. PT shows no respiratory distress on RA. Will continue to monitor PT.
[2019-01-30 19:50] VITALS: BP 170/87
[2019-01-30] MEDS ORDERED: Albuterol/Ipratropium 3ml neb HHN ONE (20:15)
--- NOTE | 2019-01-30 20:57 | Emergency Room Report ---
History of Present Illness General Chief Complaint: Upper Respiratory Illness Source: Patient Present Illness HPI 43-year-old female with history of asthma currently not controlled with albuterol inhaler here complaining of 3 days of cough and congestion and more wheezing. Patient complains of shortness of breath posttussive. Denies any chest pain, pleuritic chest pain, abdominal pain nausea vomiting. Reports sore throat and congestion. Other than albuterol inhaler has not taken any medication for symptom relief. Denies history of tobacco smoke, marijuana use and drug use. Denies exposure to allergens and smoke. Upon auscultation of lungs mild wheezing and also crackles in the left mid upper lobe are noted. Denies fever and chills. Allergies: Coded Allergies: No Known Allergies (Unverified , 08/06/14) Patient History Past Medical History: see triage record Past Surgical History: unable to obtain Pertinent Family History: none Last Menstrual Period: 01/16/19 Now: No Immunizations: UTD Reviewed Nursing Documentation: PMH: Agreed; PSxH: Agreed Nursing Documentation-PMH Past Medical History: No History, Except For Hx Hypertension: Yes Hx Neurological Problems: Yes - Migraines Review of Systems All Other Systems: negative except mentioned in HPI Physical Exam Vital Signs Date Time Temp Pulse Resp B/P (MAP) Pulse Ox O2 Delivery O2 Flow Rate FiO2 01/30/19 19:44 98.2 21 170/87 94 Room Air 01/30/19 19:44 98 01/30/19 20:23 21 Sp02 EP Interpretation: reviewed, normal General Appearance: no apparent distress, alert, GCS 15, non-toxic Head: normocephalic, atraumatic Eyes: bilateral eye normal inspection, bilateral eye PERRL ENT: hearing grossly normal, normal pharynx, no angioedema, normal voice, TMs + canals normal Neck: full range of motion, supple, no carotid bruits, supple/symm/no masses Respiratory: chest non-tender, normal breath sounds, crackles - CASTRO, and LML, speaking full sentences, wheezing Cardiovascular #1: regular rate, rhythm, no edema, no murmur, normal capillary refill Gastrointestinal: normal bowel sounds, non tender, soft, non-distended, no guarding, no rebound Rectal: deferred Genitourinary: no CVA tenderness Musculoskeletal: back normal, gait/station normal, normal range of motion, non- tender, no calf tenderness Neurologic: alert, oriented x3, responsive, motor strength/tone normal, sensory intact, speech normal Psychiatric: judgement/insight normal, memory normal, mood/affect normal, no suicidal/homicidal ideation Skin: no rash Lymphatic: no adenopathy Medical Decision Making PA Attestation All diagnoses and treatment plans were reviewed and discussed with my supervising physician Dr. Rocha Diagnostic Impression: Primary Impression: Community acquired pneumonia Additional Impression: Asthma ER Course 43-year-old female with history of asthma currently not controlled with albuterol inhaler here complaining of 3 days of cough and congestion and more wheezing. Patient complains of shortness of breath posttussive. Denies any chest pain, pleuritic chest pain, abdominal pain nausea vomiting. Reports sore throat and congestion. Other than albuterol inhaler has not taken any medication for symptom relief. Denies history of tobacco smoke, marijuana use and drug use. Denies exposure to allergens and smoke. Upon auscultation of lungs mild wheezing and also crackles in the left mid upper lobe are noted. Denies fever and chills. Ddx considered but are not limited to: bronchitis, PNA, URI viral, bacterial bronchitis Vital signs: are WNL, pt. is afebrile H&PE are most consistent with: Community-acquired pneumonia, asthma exacerbation ORDERS: Chest x-ray,, Phenergan, prednisone, azithromycin ED INTERVENTIONS: Rocephin, albuterol nebulizer treatment DISCHARGE: At this time pt. is stable for d/c to home. Will provide printed patient care instructions, and any necessary prescriptions. Care plan and follow up instructions have been discussed with the patient prior to discharge. Advised the patient to follow-up with provider if worsening symptoms and to 3 days return to the emergency room patient stable to be treated outpatient. Patient agrees with the above treatment Chest X-Ray Diagnostic Results Chest X-Ray Diagnostic Results : Chest X-Ray Ordered: Yes # of Views/Limited/Complete: 1 View Indication: Shortness of Breath EP Interpretation: Yes NIESHA Xray: Interpretation reviewed, and agrees with findings. Interpretation: no pneumothorax, other - infiltrate CASTRO and LML Impression: Other - PNA Electronically Signed by: Mundo Pickard PA-C Last Vital Signs Date Time Temp Pulse Resp B/P (MAP) Pulse Ox O2 Delivery O2 Flow Rate FiO2 10/21/19 20:23 82 18 99 Room Air 21 84 18 97 01/30/19 19:44 98.2 170/87 (114) Disposition: HOME, SELF-CARE Condition: Stable Scripts Promethazine Hcl (PROMETHAZINE HCL*) 6.25 Mg/5 Ml Syrup 5 ML ORAL Q6H, #120 ML 0 Refills Prov: Mundo Boothe 01/30/19 Prednisone* (PREDNISONE*) 20 Mg Tablet 40 MG ORAL DAILY for 5 Days, #10 TAB Prov: Mundo Boothe 01/30/19 Albuterol Sulfate (VENTOLIN HFA) 18 Gm Hfa.aer.ad 2 PUFFS INH EVERY 6 HOURS, #18 GM 0 Refills Prov: Mundo Boothe 01/30/19 Azithromycin* (ZITHROMAX*) 250 Mg Tablet 250 MG ORAL DAILY for 5 Days, #6 TAB 0 Refills Take two tables once daily for 1 day, then one tablet once daily for 4 days. Prov: Mundo Boothe 01/30/19 Patient Instructions: Community-Acquired Pneumonia, Adult Additional Instructions: Take medication as directed, follow-up with your primary care provider, if worsening symptoms return to emergency room. Return to the emergency room in 2 -3 days if not feeling better. Mundo Boothe Jan 30, 2019 20:57
[2019-01-30] MEDS ORDERED: ZITHROMAX250 MG ORAL (21:00)
[2019-01-30] MEDS ORDERED: VENTOLIN HFA18 GM INH (21:00)
[2019-01-30] MEDS ORDERED: PROMETHAZI6.25 MG/1 ORAL (21:00)
[2019-01-30] MEDS ORDERED: PREDNISONE20 MG ORAL (21:00)
[2019-01-30] MEDS ORDERED: Lidocaine 1% MPF 10mg/ml 5ml INJ ONE (21:15)
[2019-01-30 21:25] VITALS: BP 170/87
--- NOTE | 2019-01-30 21:25 | NUR ---
ER DISCHARGE NOTE: Patient is cleared to be discharged per ERMD, pt is aox4, on room air, with stable vital signs. pt was given dc and prescription instructions, pt was able to verbalize understanding, pt id band and iv site removed without complications. pt is able to ambulate with steady gait. pt took all belongings.
--- NOTE | 2019-01-31 16:14 | Diagnostic Imaging Report ---
Indication: Cough Technique: One view of the chest Comparison: 12/09/2018 Findings: Heart is borderline enlarged. Lungs and pleural spaces are clear. There is no significant interim change Impression: Borderline cardiomegaly. No acute process
== END 2019-01-30 21:25 | disposition home or self-care (01) ==
LOC: EMR 20:20
DX: J18.9 Pneumonia, unspecified organism (principal); J45.909 Unspecified asthma, uncomplicated; I10 Essential (primary) hypertension; Z79.51 Long term (current) use of inhaled steroids
CPT/HCPCS: 71045; 94640; 96372; 96374; J0696; Z7502; 99284; J7620

== ENCOUNTER 2019-03-02 12:16 | Emergency (ER) | payer OTHER ==
[~2019-03-02] VITALS: Ht 162.6 cm; Wt 91.2 kg
[~2019-03-02 12:16] MED LIST changes: +PROMETHAZI6.25 MG/1 ORAL; +VENTOLIN HFA18 GM INH
--- NOTE | 2019-03-02 12:40 | NUR ---
ED Nurse Note: PT AMBULATED TO ED WITH STEADY GAIT, C/O COUGH X 3 DAYS CAUSING CHEST PAIN, WITH HEADACHES, CONGESTIONS, AND FLULIKE SYMPTOMS. PT HAS HX OF HIV. PT STATES SHE TOOK MUCINEX THE OTHER DAY AND IT DID NOT ALLEVIATE CONGESTION. PT PLACED IN A GOWN AND MONITOR. URINE SPECIMEN COLLECTED; SENT TO LAB
[2019-03-02 12:42] VITALS: BP 138/89
[2019-03-02] MEDS ORDERED: GUAIFENESIN DM118 M1 ORAL (13:30)
[2019-03-02] MEDS ORDERED: PREDNISONE20 MG ORAL (13:30)
[2019-03-02] MEDS ORDERED: NAPROXEN375 M2 ORAL (13:30)
[2019-03-02 13:40] VITALS: BP 130/84
--- NOTE | 2019-03-02 13:40 | NUR ---
ED Nurse Note: pt dc per ermd order, pt is was give dc and prescription instructions; pt verbalized undestanding. pt shows no acute signs of distress and reports decreased pain. pt ambulatory with steady gait, pt took all belongings and ID removed.
--- NOTE | 2019-03-02 19:33 | Emergency Room Report ---
History of Present Illness General Chief Complaint: Upper Respiratory Illness Source: Patient Present Illness Allergies: Coded Allergies: No Known Allergies (Unverified , 08/06/14) Patient History Last Menstrual Period: 11-6 Now: No Nursing Documentation-[facility] Past Medical History: No History, Except For Hx Hypertension: Yes Hx Neurological Problems: Yes - Migraines Physical Exam Vital Signs Date Time Temp Pulse Resp B/P (MAP) Pulse Ox O2 Delivery O2 Flow Rate FiO2 03/02/19 12:31 99.0 88 20 138/89 (105) 95 Room Air Medical Decision Making Diagnostic Impression: Primary Impression: Viral respiratory infection ER Course Patient presented for cough. Patient does not appear in any distress with normal lung sounds. Will be discharged home. Patient to return if worse. Last Vital Signs Date Time Temp Pulse Resp B/P (MAP) Pulse Ox O2 Delivery O2 Flow Rate FiO2 03/02/19 13:40 98.7 79 20 130/84 100 Room Air Disposition: HOME, SELF-CARE Condition: Stable Scripts Guaifenesin/Dextromethorphan (Guaifenesin Dm Syrup) 5 Ml Syrup 1 TSP ORAL Q8H, #118 ML 0 Refills Prov: Iván Parikh MD 03/02/19 Prednisone* (PREDNISONE*) 20 Mg Tablet 40 MG ORAL DAILY, #10 TAB Prov: Iván Parikh MD 03/02/19 Naproxen* (NAPROXEN*) 375 Mg Tablet. 375 MG ORAL TWICE A DAY, #20 TAB Prov: Iván Parikh MD 03/02/19 Referrals: NON PHYSICIAN (PCP) Patient Instructions: Viral Respiratory Infection Iván Parikh MD Mar 02, 2019 19:33
== END 2019-03-02 13:40 | disposition home or self-care (01) ==
LOC: EMR 13:20
DX: B34.9 Viral infection, unspecified (principal); I10 Essential (primary) hypertension
CPT/HCPCS: 99282

== ENCOUNTER 2019-05-15 21:03 | Emergency (ER) | payer OTHER ==
[~2019-05-15] VITALS: Ht 162.6 cm; Wt 81.6 kg
[~2019-05-15 21:03] MED LIST changes: +NAPROXEN375 M2 ORAL
[2019-05-15 21:30] VITALS: BP 176/97
--- NOTE | 2019-05-15 21:30 | NUR ---
ED Nurse Note: RECIEVED PT FROM HOME, HERRE WITH C/O PAIN IN CHEST DUE TO COUGH AND CONGESTION X 1 DAY, DENIES FEVERS OR ANY OTHER COMPLAINTS, PT IS SMOKER.
[2019-05-15] MEDS ORDERED: ZITHROMAX250 MG ORAL (21:43)
[2019-05-15] MEDS ORDERED: PREDNISONE20 MG ORAL (21:43)
[2019-05-15] MEDS ORDERED: GUAIFENESIN-DM 15 ML PO (21:43)
--- NOTE | 2019-05-15 21:43 | Emergency Room Report ---
History of Present Illness General Chief Complaint: Upper Respiratory Illness Source: Patient Present Illness HPI This a 44-year-old female with a history of "bronchitis." She is currently taking albuterol and had some leftover prednisone. She presents with a cough and congestion for last 2 weeks. She states she is coughing up phlegm. No nausea no vomiting. No fever chills. Better with her inhaler. Worse with lying flat. She said at night she felt short of breath and wheezing and coughing. Asking for cough medicine. Denies any other complaint. Allergies: Coded Allergies: No Known Allergies (Unverified , 08/06/14) Patient History Past Medical History: see triage record, old chart reviewed, HTN Past Surgical History: pacemaker Pertinent Family History: none Social History: Denies: smoking Last Menstrual Period: 05/06/19 Now: No : 4 Para: 4 Immunizations: other Reviewed Nursing Documentation: PMH: Agreed; PSxH: Agreed Nursing Documentation-PMH Hx Hypertension: Yes Hx COPD: Yes - bronchitis Hx Neurological Problems: Yes - Migraines Review of Systems Eye: Denies: eye pain, blurred vision ENT: Denies: ear pain, nose congestion, throat swelling Respiratory: Reports: cough, shortness of breath, wheezing, sputum Cardiovascular: Denies: chest pain, palpitations Gastrointestinal: Denies: abdominal pain, diarrhea, nausea, vomiting Musculoskeletal: Denies: back pain, joint pain Skin: Denies: rash Neurological: Denies: headache, numbness Endocrine: Denies: increased thirst, increased urine Hematologic/Lymphatic: Denies: easy bruising All Other Systems: negative except mentioned in HPI Physical Exam Vital Signs Date Time Temp Pulse Resp B/P (MAP) Pulse Ox O2 Delivery O2 Flow Rate FiO2 05/15/19 21:09 98.1 76 18 176/97 (123) 96 Room Air Vitals with high blood pressure Sp02 EP Interpretation: reviewed, normal General Appearance: well appearing, no apparent distress, alert Head: normocephalic, atraumatic Eyes: bilateral eye PERRL, bilateral eye EOMI ENT: hearing grossly normal, normal pharynx Neck: full range of motion, supple, no meningismus Respiratory: chest non-tender, wheezing - Faint expiratory wheezing Cardiovascular #1: regular rate, rhythm, no murmur Gastrointestinal: normal bowel sounds, non tender, no mass, no organomegaly, no bruit, non-distended Musculoskeletal: back normal, normal range of motion, gait/station normal Psychiatric: mood/affect normal Medical Decision Making Diagnostic Impression: Primary Impression: Pneumonitis Additional Impression: Hypertension Qualified Codes: I10 - Essential (primary) hypertension ER Course Patient presents with cough and slight wheezing. She most likely has COPD/ asthma. No evidence of pneumonia, ACS, PE to name a few. Will discharge home. Last Vital Signs Date Time Temp Pulse Resp B/P (MAP) Pulse Ox O2 Delivery O2 Flow Rate FiO2 05/15/19 21:09 98.1 76 18 176/97 (123) 96 Room Air Status: improved Disposition: HOME, SELF-CARE Condition: Stable Scripts Azithromycin* (ZITHROMAX*) 250 Mg Tablet 250 MG ORAL DAILY, #6 TAB 0 Refills Take two tables once daily for 1 day, then one tablet once daily for 4 days. Prov: Alcides Garcia MD 05/15/19 Guaifenesin/Dextromethorphan (Guaifenesin-Dm 100-10 mg/5 ml) 5 Ml Liquid 5 ML PO Q6HR, #118 ML Prov: Alcides Garcia MD 05/15/19 Prednisone* (PREDNISONE*) 20 Mg Tablet 40 MG ORAL DAILY, #10 TAB Prov: Alcides Garcia MD 05/15/19 Patient Instructions: Upper Respiratory Infection, Adult Additional Instructions: Follow-up with in 7 days. Return if symptoms worsen. Alcides Garcia MD May 15, 2019 21:43
[2019-05-15] MEDS ORDERED: Albuterol ud Inhalation HHN ONE (21:45)
[2019-05-15 22:15] VITALS: BP 176/97
== END 2019-05-15 22:20 | disposition home or self-care (01) ==
LOC: EMR 22:17
DX: J18.9 Pneumonia, unspecified organism (principal); I10 Essential (primary) hypertension
CPT/HCPCS: 99282

== ENCOUNTER 2019-09-14 16:05 | Emergency (ER) | payer OTHER ==
[~2019-09-14] VITALS: Ht 162.6 cm; Wt 94.8 kg
[~2019-09-14 16:05] MED LIST changes: +GUAIFENESIN-DM 15 ML PO
[2019-09-14 16:08] VITALS: BP 140/92
--- NOTE | 2019-09-14 16:20 | Emergency Room Report ---
History of Present Illness General Chief Complaint: Flu Like Symptoms Present Illness HPI 44-year-old female with history of bronchitis and HIV with unknown CD4 count and not currently compliant with medications presents to the emergency department complaining of cough, 5 out of 10 severity sore throat, increased albuterol use in addition to suspicion of UTI. Patient denies fevers or chills. She denies productive sputum. She denies headache, neck pain/ stiffness or photophobia. Denies chest pain but reports intermittent painful cough. NO smoking hx. No other aggravating or relieving factors at this time. Allergies: Coded Allergies: No Known Allergies (Unverified , 08/06/14) COVID-19 Screening Contact w/high risk pt: No Recent Travel to affected area: No Experienced COVID-19 symptoms?: Yes COVID-19 symptoms experienced: Shortness of Breath, Cough, Flu-Like Symptoms COVID-19 Testing performed CAN LINE OPERATOR: No Patient History Past Medical History: HIV Past Surgical History: none Pertinent Family History: none Now: No Reviewed Nursing Documentation: PMH: Agreed; PSxH: Agreed Nursing Documentation-PMH Hx Hypertension: Yes Hx COPD: Yes - bronchitis Hx Neurological Problems: Yes - Migraines Review of Systems All Other Systems: negative except mentioned in HPI Physical Exam Vital Signs Date Time Temp Pulse Resp B/P (MAP) Pulse Ox O2 Delivery O2 Flow Rate FiO2 09/14/19 15:53 98.8 90 20 140/92 (108) 98 Room Air Sp02 EP Interpretation: reviewed, normal General Appearance: no apparent distress, alert, GCS 15, non-toxic Head: normocephalic, atraumatic Eyes: bilateral eye normal inspection, bilateral eye PERRL ENT: hearing grossly normal, normal voice, uvula midline, moist mucus membranes , other - white plaques on the bilateral tonsils and buccal mucosa bilaterally. Uvula is midline, no erythema, no petechiae Neck: full range of motion Respiratory: chest non-tender, lungs clear, normal breath sounds, no rhonchi, no respiratory distress, no accessory muscle use, no wheezing, speaking full sentences Cardiovascular #1: regular rate, rhythm, no edema, normal capillary refill Gastrointestinal: normal bowel sounds, non tender, soft Genitourinary: normal inspection, no CVA tenderness Musculoskeletal: normal range of motion, gait/station normal, non-tender Neurologic: alert, motor strength/tone normal, oriented x3, sensory intact, responsive, speech normal Psychiatric: judgement/insight normal Skin: no rash, normal color Medical Decision Making PA Attestation Dr. Jean is my supervising Physician whom patient management has been discussed with. Diagnostic Impression: Primary Impression: Candidiasis of mouth with HIV infection Additional Impressions: UTI (urinary tract infection) Qualified Codes: N30.01 - Acute cystitis with hematuria Bronchitis ER Course 44-year-old female with history of bronchitis and HIV with unknown CD4 count and not currently compliant with medications presents to the emergency department complaining of cough, 5 out of 10 severity sore throat, increased albuterol use in addition to suspicion of UTI. Patient denies fevers or chills. She denies productive sputum. She denies headache, neck pain/ stiffness or photophobia. She reports urinary frequency and hematuria. She denies dysuria or urgency. She denies abdominal pain or tenderness. Denies chest pain but reports intermittent painful cough. NO smoking hx. No other aggravating or relieving factors at this time. Ddx considered but are not limited to URI, pneumonia, PE, strep pharyngitis, meningitis, COVID-19, UTI, oral candidiasis, esophagitis Vital signs: Pt. is afebrile, the remaining VS are WNL. H&PE are most consistent with URI- no meningeal signs, oropharynx is not involved, no evidence of bacterial infection at this time. Pt. is non-toxic in appearance. Pt. is not demonstrating acute respiratory distress or impending airway compromise. Lungs are clear to auscultation. ORDERS: -CXR: WNL -UA: Nitrite Positive ED INTERVENTIONS: None required at this time. ---D/W pt. importance on keeping up with Anti-viral medications and infectious disease doctor. D/w pt. that usually oral candidiasis in an HIV pos. Pt. represents a significantly compromised immune system requiring close outpatient follow up. --PT. EDUCATION: Discussed antibiotic resistance with inappropriate prescribing of antibiotics for viral illnesses. Discussed signs and symptoms to indicate viral illness versus bacterial illness. DISCHARGE: At this time pt. is stable for d/c to home. Will provide printed patient care instructions, and any necessary prescriptions. Care plan and follow up instructions have been discussed with the patient prior to discharge. Labs Test 09/14/19 17:00 Urine Color Yellow Urine Appearance Slightly cloudy Urine pH 6 (4.5-8.0) Urine Specific [place] 1.015 (1.005-1.035) Urine Protein 3+ (NEGATIVE) Urine Glucose (UA) Negative (NEGATIVE) Urine Ketones Negative (NEGATIVE) Urine Blood 5+ (NEGATIVE) Urine Nitrite Positive (NEGATIVE) Urine Bilirubin Negative (NEGATIVE) Urine Urobilinogen Normal MG/DL (0.0-1.0) Urine Leukocyte Esterase 3+ (NEGATIVE) Urine RBC 15-20 /HPF (0 - 2) Urine WBC Tntc /HPF (0 - 2) Urine Squamous Epithelial Cells Moderate /LPF (NONE/OCC) Urine Bacteria Many /HPF (NONE) Chest X-Ray Diagnostic Results Chest X-Ray Diagnostic Results : Chest X-Ray Ordered: Yes # of Views/Limited/Complete: 1 View Indication: Other - Cough, and SOB in HIV + pt. w. hx of bronchitis. EP Interpretation: Yes PA Xray: Interpretation reviewed, by supervising MD, and agrees with findings. Interpretation: no consolidation, no effusion, no pneumothorax, no acute cardiopulmonary disease Impression: No acute disease Electronically Signed by: Ciara Rosa PA-C Last Vital Signs Date Time Temp Pulse Resp B/P (MAP) Pulse Ox O2 Delivery O2 Flow Rate FiO2 09/14/19 16:08 98.8 20 140/92 98 Room Air 09/14/19 16:08 90 Disposition: HOME, SELF-CARE Condition: Stable Scripts Guaifenesin/Dextromethorphan* (Guaifenesin Dm Syrup*) 5 Ml Syrup 5 ML ORAL Q6H PRN for FOR COUGH, #118 ML Prov: Ciara Rosa 09/14/19 Albuterol Sulfate* (Albuterol Sulfate Hfa*) 8.5 Gm Hfa.aer.ad 2 PUFF INH Q3H, #1 INH Prov: Ciara Rosa 09/14/19 Nystatin* (NYSTATIN*) 100,000 Unit/1 Ml Oral.susp 5 ML ORAL FOUR TIMES A DAY for 7 Days, #35 ML Swish in the mouth and retain for as long as possible (several minutes) before swallowing Prov: Ciara Rosa 09/14/19 Nitrofurantoin Monohyd/M-Cryst* (MACROBID 100 MG*) 100 Mg Capsule 100 MG ORAL EVERY 12 HOURS for 7 Days, #14 CAP Prov: Ciara Rosa 09/14/19 Referrals: Cheyanne Baca [facility] Patient Instructions: Acute Bronchitis, [id number], Thrush, Adult, Urinary Tract Infection, [id number] Additional Instructions: Take medications as directed. Follow up with a Primary Care Provider in 3-5 days, even if your symptoms have resolved. Follow-up promptly with your primary care provider as was infectious disease doctor --Please review list of primary care clinics, if you do not already have a primary care provider Return sooner to ED if new symptoms occur, or current symptoms become worse. - Please note that this Emergency Department Report was dictated using [employer]engsupervisor yard technology software, occasionally this can lead to erroneous entry secondary to interpretation by the dictation equipment. Ciara Rosa Sep 14, 2019 16:20
--- NOTE | 2019-09-14 17:01 | Diagnostic Imaging Report ---
Indication: Cough Technique: One view of the chest Comparison: 01/30/2019 Findings: Lungs pleural spaces are clear. The heart size is borderline enlarged. No significant interim change. Impression: No acute process.
[2019-09-14 17:48] LABS: APPEARANCE,URINE SLIGHTLY CLOUDY; BILIRUBIN, URINE NEGATIVE (NEGATIVE); GLUCOSE, URINE (UA) NEGATIVE (NEGATIVE); KETONES,URINE NEGATIVE (NEGATIVE); LEUKOCYTE ESTERASE ,URINE 3+ (NEGATIVE); NITRITE,URINE POSITIVE (NEGATIVE); PH,URINE 6 (4.5-8.0); PROTEIN,URINE 3+ (NEGATIVE); UROBILINOGEN,URINE NORMAL MG/DL (0.0-1.0)
[2019-09-14 17:51] LABS: COLOR,URINE YELLOW
[2019-09-14] MEDS ORDERED: NYSTATIN100000 UN1 ORAL (18:00)
[2019-09-14] MEDS ORDERED: NITROFURANTOIN100 M2 ORAL (18:00)
[2019-09-14] MEDS ORDERED: ALBUTEROL SULF8.5 G1 INH (18:00)
[2019-09-14] MEDS ORDERED: GUAIFENESIN DM118 M1 ORAL (18:00)
[2019-09-14 18:04] VITALS: BP 138/75
== END 2019-09-14 18:04 | disposition home or self-care (01) ==
LOC: EDBD 16:05 → EMR 16:32
DX: B20 Human immunodeficiency virus [HIV] disease (principal); B37.0 Candidal stomatitis; N30.01 Acute cystitis with hematuria; J40 Bronchitis, not specified as acute or chronic; I10 Essential (primary) hypertension; Z91.14 Patient's other noncompliance with medication regimen; G43.909 Migraine, unspecified, not intractable, without status migrainosus
CPT/HCPCS: 71045; 81003; 87086; 87181; Z7502; 99283

== ENCOUNTER 2019-11-02 22:28 | Emergency (ER) | payer OTHER ==
[~2019-11-02] VITALS: Ht 162.6 cm; Wt 95.7 kg
[~2019-11-02 22:28] MED LIST changes: +ALBUTEROL SULF8.5 G1 INH; +NYSTATIN100000 UN1 ORAL
--- NOTE | 2019-11-02 22:53 | Emergency Room Report ---
History of Present Illness General Chief Complaint: Female Urogenital Problems Source: Patient Present Illness HPI Disclaimer: Please note that this report is being documented using [employer] technology. This can lead to erroneous entry secondary to incorrect interpretation by the dictating instrument. HPI: 44-year-old female history of asthma and HIV (on retrovirals but cannot recall specific medication names) presents for evaluation of pelvic pain. Symptoms present several weeks. She states she was treated for urinary tract infection approximately 1 month ago. Reported symptoms resolution however 1 week later they returned. Reports urinary frequency, urgency and pelvic pressure. Denies vaginal bleeding or vaginal discharge. Denies sexual contact over the past few months. Denies fever, chills, vomiting, diarrhea, abdominal pain otherwise. Denies flank pain, hematuria. LMP was 09/20. PMH: Recurrent bronchitis, asthma, HIV PSH: Tubal ligation, sections Allergies: Denied Social Hx: Denied Allergies: Coded Allergies: No Known Allergies (Unverified , 08/06/14) COVID-19 Screening Contact w/high risk pt: No Recent Travel to affected area: No Experienced COVID-19 symptoms?: No COVID-19 symptoms experienced: Shortness of Breath, Cough, Flu-Like Symptoms COVID-19 Testing performed TAVERN OPERATOR: No Patient History Last Menstrual Period: 10/21/19 Now: No - patient tubes are tied : 5 Para: 4 Nursing Documentation-PMH Hx Cardiac Problems: Yes - HIV Hx Hypertension: Yes Hx Pacemaker: No Hx Asthma: No Hx COPD: No Hx Diabetes: No Hx Cancer: No Hx Gastrointestinal Problems: No Hx Dialysis: No History Of Psychiatric Problem: No Hx Neurological Problems: No Hx Cerebrovascular Accident: No Hx Seizures: No Review of Systems All Other Systems: negative except mentioned in HPI Physical Exam Vital Signs Date Time Temp Pulse Resp B/P (MAP) Pulse Ox O2 Delivery O2 Flow Rate FiO2 11/02/19 22:41 97.7 86 20 176/105 (128) 96 Room Air General: Awake and alert, no acute distress HEENT: NC/AT. EOMI. Cardiovascular: RRR. S1 and S2 normal. No murmur appreciated Resp: Normal work of breathing. No cough,, no crackles. No stridor. Very mild wheezing bilaterally lower lobes. No respiratory distress Abdomen: Abdomen is soft, nondistended. Tenderness palpation in the suprapubic region. Minimal tenderness in the right and left lower quadrants without mass, no guarding, no rebound. No tenderness in the upper quadrants or epigastrium. No CVA tenderness. Skin: Intact. No abrasions, laceration or rash over the exposed skin MSK: Normal tone and bulk. Moving all extremities. No obvious deformity. Neuro: Awake and alert. Mentating appropriately. Medical Decision Making Diagnostic Impression: Primary Impression: UTI (urinary tract infection) ER Course Is a 44-year-old female presenting for evaluation of pelvic pain and urinary symptoms for the past 2 weeks. Differential includes was not a to UTI, bladder spasm, pyelonephritis, cervicitis to name a few. Urinalysis consistent with acute urinary tract infection. No clinical evidence of pyelonephritis. Last culture results showed resistance to cefazolin and have decided to treat with Bactrim. First dose given in the ED. Patient will follow-up with her PMD in an outpatient basis. Discussed reasons to return to the emergency department. She is stable for outpatient follow-up. She understands and agrees with this treatment plan. Last Vital Signs Date Time Temp Pulse Resp B/P (MAP) Pulse Ox O2 Delivery O2 Flow Rate FiO2 11/02/19 22:41 97.7 86 20 176/105 (128) 96 Room Air Disposition: HOME, SELF-CARE Condition: Stable Scripts Trimethoprim/Sulfamethoxazole 160/800* (BACTRIM DS TABLET*) 1 Each Tablet 1 TAB ORAL Q12H, #14 TAB 0 Refills Prov: Jorge Rocha MD 11/02/19 Albuterol Sulfate* (Albuterol Sulfate Hfa*) 8.5 Gm Hfa.aer.ad 2 PUFF INH Q3H, #1 INH Prov: Jorge Rocha MD 11/02/19 Prednisone* (PREDNISONE*) 20 Mg Tablet 40 MG ORAL DAILY, #10 TAB Prov: Jorge Rocha MD 11/02/19 Jorge Rocha MD Nov 02, 2019 22:53
[2019-11-02 23:00] VITALS: BP 176/105
--- NOTE | 2019-11-02 23:00 | NUR ---
ED Nurse Note: Pt walked into ED from home for c/o lower abdomen/pelvic pain onset a week ago. Pt notes she had similar pain and was seen at the hospital last month which she was dx with UTI. Pt believes pain is related to UTI again. Pt denies any discharge or other urinary symptoms. Pt is aaox4, breathing is normal and unlabored. NAD. Will continue to monitor.
--- NOTE | 2019-11-02 23:03 | NUR ---
ED Nurse Note: Urine collected and sent to lab.
[2019-11-02 23:27] LABS: BILIRUBIN, URINE NEGATIVE (NEGATIVE); GLUCOSE, URINE (UA) NEGATIVE (NEGATIVE); KETONES,URINE NEGATIVE (NEGATIVE); LEUKOCYTE ESTERASE ,URINE 3+ (NEGATIVE); NITRITE,URINE POSITIVE (NEGATIVE); PH,URINE 6 (4.5-8.0); PROTEIN,URINE 2+ (NEGATIVE); UROBILINOGEN,URINE 4 MG/DL (0.0-1.0)
[2019-11-02 23:49] LABS: APPEARANCE,URINE SLIGHTLY CLOUDY; COLOR,URINE YELLOW
[2019-11-02] MEDS ORDERED: PREDNISONE20 MG ORAL (23:57)
[2019-11-02] MEDS ORDERED: BACTRIM DS TAB1 EAC1 ORAL (23:57)
[2019-11-02] MEDS ORDERED: ALBUTEROL SULF8.5 G1 INH (23:57)
[2019-11-03] MEDS ORDERED: Bactrim-DS 1 tab ORAL ONE
[2019-11-03] MEDS ORDERED: Bactrim-DS 1 tab ONE
[2019-11-03 00:05] VITALS: BP 140/90
--- NOTE | 2019-11-03 00:05 | NUR ---
ER DISCHARGE NOTE: Patient is cleared to be discharged per ERMD, pt is aox4, on room air, with stable vital signs. pt was given dc and prescription instructions, pt was able to verbalize understanding, pt id band removed. pt prescriptions sent electronically to her perferred pharmacy. pt is able to ambulate with steady gait. pt took all belongings.
== END 2019-11-03 00:05 | disposition home or self-care (01) ==
LOC: EMR 22:56
DX: N39.0 Urinary tract infection, site not specified (principal); B20 Human immunodeficiency virus [HIV] disease; I10 Essential (primary) hypertension
CPT/HCPCS: 81003; 81025; 87086; 87181; Z7502; 99283

== ENCOUNTER 2020-02-05 21:44 | Emergency (ER) | payer OTHER ==
[~2020-02-05] VITALS: Ht 162.6 cm; Wt 93.0 kg
[2020-02-05 21:55] VITALS: BP 163/95
--- NOTE | 2020-02-05 21:55 | NUR ---
ED Nurse Note: Patient walked into ED for c/o L lower jaw/tooth pain. She states the pain became worse tonight and it is difficult to chew food on L side of mouth. Patient does have dental appt coming up next week. AAOX4, breathing is normal and unlabored. NAD noted.
[2020-02-05] MEDS ORDERED: HYDROCODON-ACE1 EA15 ORAL (22:12)
[2020-02-05] MEDS ORDERED: AUGMENTIN 875-1 EAC1 ORAL (22:12)
[2020-02-05] MEDS ORDERED: DIFLUCAN150 MG PO (22:12)
--- NOTE | 2020-02-05 22:12 | Emergency Room Report ---
History of Present Illness General Chief Complaint: Toothache Source: Patient Present Illness HPI This is a 44-year-old female with history of HIV and high blood pressure. She presents with chief complaint of dental pain. Onset for last 3 to 4 days. Pain is localized to the left lower jaw. She has a cracked tooth in that area. She saw one dentist who did x-ray and refer her to another one for possible root canal/tooth extraction. But this will not be done until February 10. She denies any fever or chills. Pain is 9 out of 10. Worse with eating and drinking. Better with rest. No swelling or drainage. Denies any other complaint. Allergies: Coded Allergies: No Known Allergies (Unverified , 08/06/14) COVID-19 Screening Contact w/high risk pt: No Recent Travel to affected area: No Experienced COVID-19 symptoms?: No COVID-19 symptoms experienced: Shortness of Breath, Cough, Flu-Like Symptoms COVID-19 Testing performed CONFERENCE CONCIERGE: No Patient History Past Medical History: see triage record, old chart reviewed, HTN, HIV Past Surgical History: other Pertinent Family History: none Social History: Denies: smoking Last Menstrual Period: 01/2020 Now: No Immunizations: other Reviewed Nursing Documentation: PMH: Agreed; PSxH: Agreed Nursing Documentation-PMH Hx Cardiac Problems: Yes - HIV Hx Hypertension: Yes Hx Pacemaker: No Hx Asthma: No Hx COPD: No Hx Diabetes: No Hx Cancer: No Hx Gastrointestinal Problems: No Hx Dialysis: No Hx Neurological Problems: No Hx Cerebrovascular Accident: No Hx Seizures: No Review of Systems Eye: Denies: eye pain, blurred vision ENT: Denies: ear pain, nose congestion, throat swelling Respiratory: Denies: cough, shortness of breath Cardiovascular: Denies: chest pain, palpitations Gastrointestinal: Denies: abdominal pain, diarrhea, nausea, vomiting Musculoskeletal: Denies: back pain, joint pain Skin: Denies: rash Neurological: Denies: headache, numbness Endocrine: Denies: increased thirst, increased urine Hematologic/Lymphatic: Denies: easy bruising All Other Systems: negative except mentioned in HPI Physical Exam Vital Signs Date Time Temp Pulse Resp B/P (MAP) Pulse Ox O2 Delivery O2 Flow Rate FiO2 02/05/20 21:49 98.4 86 16 163/95 (117) 98 Room Air Vitals with high blood pressure Sp02 EP Interpretation: reviewed, normal General Appearance: well appearing, no apparent distress, alert Head: normocephalic, atraumatic Eyes: bilateral eye PERRL, bilateral eye EOMI ENT: hearing grossly normal, normal pharynx, other - Oropharynx: She has poor dentition. Her left lower second molar has a large crack and is decay. No abscess seen. Neck: full range of motion, supple, no meningismus Respiratory: chest non-tender, lungs clear, normal breath sounds Cardiovascular #1: regular rate, rhythm, no murmur Gastrointestinal: normal bowel sounds, non tender, no mass, no organomegaly, no bruit, non-distended Musculoskeletal: back normal, normal range of motion, gait/station normal Psychiatric: mood/affect normal Medical Decision Making Diagnostic Impression: Primary Impression: Toothache ER Course Patient presents with toothache. Could be a root infection. No obvious abscess per ID. Will discharge home. Last Vital Signs Date Time Temp Pulse Resp B/P (MAP) Pulse Ox O2 Delivery O2 Flow Rate FiO2 02/05/20 21:49 98.4 86 16 163/95 (117) 98 Room Air Status: unchanged Disposition: HOME, SELF-CARE Condition: Stable Scripts Fluconazole (DIFLUCAN) 150 Mg Tablet 150 MG PO DAILY, #1 TAB Prov: Alcides Garcia MD 02/05/20 Hydrocodone/Acetaminophen 5-325* (HYDROCODONE/ACETAMINOPHEN 5-325*) 1 Each Tablet 1 TAB ORAL Q6H PRN for For Pain, #20 TAB 0 Refills Prov: Alcides Garcia MD 02/05/20 Amoxicillin/Potassium Clav 875-125* (AUGMENTIN 875-125 TABLET*) 1 Each Tablet 1 TAB ORAL TWICE A DAY, #14 TAB Prov: Alcides Garcia MD 02/05/20 Patient Instructions: Dental Pain Additional Instructions: Follow-up with your dentist as scheduled. Return if symptoms worsen. Alcides Garica MD Feb 05, 2020 22:12
[2020-02-05 22:15] VITALS: BP 151/89
[2020-02-05] MEDS ORDERED: Augmentin 875mg Tab ORAL ONE (22:15)
[2020-02-05] MEDS ORDERED: HYDROcodone/Acetamin 5/325 tab ORAL ONE (22:15)
--- NOTE | 2020-02-05 22:15 | NUR ---
ER DISCHARGE NOTE: Patient is cleared to be discharged per ERMD, pt is aox4, on room air, with stable vital signs. MD aware of BP. pt was given dc and prescription instructions, pt was able to verbalize understanding, pt id band removed. pt is able to ambulate with steady gait. pt took all belongings.
== END 2020-02-05 22:15 | disposition home or self-care (01) ==
LOC: EMR 22:15
DX: K08.89 Other specified disorders of teeth and supporting structures (principal); R68.84 Jaw pain; B20 Human immunodeficiency virus [HIV] disease; I10 Essential (primary) hypertension
CPT/HCPCS: 99282

== ENCOUNTER 2020-02-24 19:56 | Emergency (ER) | payer OTHER ==
[~2020-02-24] VITALS: Ht 162.6 cm; Wt 85.7 kg
[~2020-02-24 19:56] MED LIST changes: +AUGMENTIN 875-1 EAC1 ORAL; +DIFLUCAN150 MG PO
[2020-02-24] MEDS ORDERED: Lidocaine 2% Visc 15ml soln ORAL ONE (20:15)
[2020-02-24] MEDS ORDERED: Dicyclomine HCl 10mg/5ml oral soln ORAL ONE (20:15)
[2020-02-24] MEDS ORDERED: Mylanta II UD 30ml ORAL ONE (20:15)
--- NOTE | 2020-02-24 20:20 | NUR ---
ED Nurse Note: Recieved pt walk in from home, here with c/o epigastric pain x 1 week and especially noted after drinking coffee, pt is awake, alert and oriented x 4, ambulatory, denies any other discomforts or complaints.
--- NOTE | 2020-02-24 20:32 | Emergency Room Report ---
History of Present Illness General Chief Complaint: Chest Pain Source: Patient Present Illness HPI Disclaimer: Please note that this report is being documented using DRAGON technology. This can lead to erroneous entry secondary to incorrect interpretation by the dictating instrument. HPI: 44-year-old female presents for evaluation of chest pain. She has history of HIV compliant with retroviral therapy as well as hypertension. Patient reports 2 days burning epigastric pain radiating up into the chest. Is now centered over the left chest. It is burning in nature. No squeezing, no sharp pain. Denies shortness of breath, cough, congestion, fever, chills. Reports intermittent nausea but no vomiting. Exacerbated by eating. Relieved by rest. Has not taken any medication aside from ibuprofen 2 days ago. Denies dysuria, hematuria, diarrhea. Denies history of CAD. 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: No Patient History Last Menstrual Period: 02/14/2020 Now: No : 6 Para: 4 Nursing Documentation-PMH Past Medical History: No History, Except For Hx Cardiac Problems: Yes - HIV Hx Hypertension: Yes Hx Pacemaker: No Hx Asthma: No Hx COPD: No - BRONCHITIS Hx Diabetes: No Hx Cancer: No Hx Gastrointestinal Problems: No Hx Dialysis: No Hx Neurological Problems: No Hx Cerebrovascular Accident: No Hx Seizures: No Review of Systems All Other Systems: negative except mentioned in HPI Physical Exam Vital Signs Date Time Temp Pulse Resp B/P (MAP) Pulse Ox O2 Delivery O2 Flow Rate FiO2 02/24/20 19:59 97.2 94 18 121/79 (93) 98 Room Air General: Awake and alert, no acute distress HEENT: NC/AT. EOMI. Cardiovascular: RRR. S1 and S2 normal. No murmur appreciated Resp: Normal work of breathing. No cough, wheezing or crackles appreciated Abdomen: Abdomen is soft, nondistended. Mild epigastric tenderness. No rebound. Negative Arizmendi's. Skin: Intact. No abrasions, laceration or rash over the exposed skin MSK: Normal tone and bulk. Moving all extremities. No obvious deformity. Neuro: Awake and alert. Mentating appropriately. Medical Decision Making Diagnostic Impression: Primary Impression: GERD (gastroesophageal reflux disease) Additional Impressions: Bronchitis Elevated serum creatinine ER Course 44-year-old female presents for evaluation of chest discomfort. Differential includes was not limited to ACS, arrhythmia, angina, bronchitis, pneumonia, esophageal spasm, GERD, pancreatitis, cholecystitis among others. Patient is well-appearing and EKG on arrival is nonischemic. No evidence of infiltrate on chest x-ray. Labs including lipase and hepatic functions have returned within normal limits. Creatinine elevated compared to previous of 1.5 years ago. Symptoms most consistent with GERD. Patient recently started drinking coffee again. Treated with famotidine and GI cocktail noted improvement. She is complaining of some wheezing lately consistent with her prior bronchitis and requesting short burst of steroids. Do not hear significant wheezing on exam though the patient has a long history of bronchitis. Will try short course of steroids. Start on antacids. She can follow-up for recheck of her creatinine next week. Encouraged her drink plenty of fluids. Discussed reasons to return to the ER. She understands and agrees with this treatment plan. Laboratory Tests Test 02/24/20 20:15 White Blood Count 5.4 K/UL (4.8-10.8) Red Blood Count 4.24 M/UL (4.20-5.40) Hemoglobin 12.7 G/DL (12.0-16.0) Hematocrit 38.1 % (37.0-47.0) Mean Corpuscular Volume 90 FL (80-99) Mean Corpuscular Hemoglobin 30.0 PG (27.0-31.0) Mean Corpuscular Hemoglobin Concent 33.3 G/DL (32.0-36.0) Red Cell Distribution Width 13.8 % (11.6-14.8) Platelet Count 191 K/UL (150-450) Mean Platelet Volume 8.3 FL (6.5-10.1) Neutrophils (%) (Auto) 63.7 % (45.0-75.0) Lymphocytes (%) (Auto) 24.4 % (20.0-45.0) Monocytes (%) (Auto) 8.4 % (1.0-10.0) Eosinophils (%) (Auto) 2.5 % (0.0-3.0) Basophils (%) (Auto) 1.0 % (0.0-2.0) Sodium Level 139 MMOL/L (136-145) Potassium Level 3.1 MMOL/L (3.5-5.1) L Chloride Level 103 MMOL/L (98-107) Carbon Dioxide Level 27 MMOL/L (21-32) Anion Gap 9 mmol/L (5-15) Blood Urea Nitrogen 15 mg/dL (7-18) Creatinine 1.6 MG/DL (0.55-1.30) H Estimated Glomerular Filtration Rate 42.3 mL/min (>60) Glucose Level 83 MG/DL (74-106) Calcium Level 9.2 MG/DL (8.5-10.1) Total Bilirubin 0.8 MG/DL (0.2-1.0) Aspartate Amino Transferase (AST) 44 U/L (15-37) H Alanine Aminotransferase (ALT) 38 U/L (12-78) Alkaline Phosphatase 60 U/L (46-116) Troponin I 0.000 ng/mL (0.000-0.056) Total Protein 9.2 G/DL (6.4-8.2) H Albumin 3.8 G/DL (3.4-5.0) Globulin 5.4 g/dL Albumin/Globulin Ratio 0.7 (1.0-2.7) L Lipase 173 U/L (73-393) EKG Diagnostic Results Troponin ordered: Yes When was troponin ordered?: Feb 24, 2020 EKG Time: 20:15 Rate: normal Rhythm: NSR ST Segments: no acute changes Other Impression Sinus rhythm, normal axis, normal intervals, QTC 456 ms, no ST segment changes. Rhythm Strip Diag. Results Rhythm Strip Time: 20:15 EP Interpretation: yes Rate: 80s Rhythm: NSR, no PVC's, no ectopy Chest X-Ray Diagnostic Results Chest X-Ray Diagnostic Results : Indication: Chest Pain Interpretation: no consolidation, no effusion, no pneumothorax, no acute cardiopulmonary disease Impression: No acute disease Electronically Signed by: Electronically signed by Dr. Jorge Rocha MD Last Vital Signs Date Time Temp Pulse Resp B/P (MAP) Pulse Ox O2 Delivery O2 Flow Rate FiO2 02/24/20 19:59 97.2 94 18 121/79 (93) 98 Room Air Disposition: HOME, SELF-CARE Condition: Stable Scripts Prednisone* (PREDNISONE*) 20 Mg Tablet 40 MG ORAL DAILY for 5 Days, #10 TAB Prov: Jorge Rocha MD 02/24/20 Famotidine* (Pepcid 20mg tablet*) 20 Mg Tablet 20 MG ORAL DAILY for Gerd, #30 TAB 0 Refills Prov: Jorge Rocha MD 02/24/20 Referrals: NON PHYSICIAN (PCP) Jorge Rocha MD Feb 24, 2020 20:32
[2020-02-24 20:38] LABS: EOSINOPHILS % (AUTO) 2.5 % (0.0-3.0); HEMATOCRIT 38.1 % (37.0-47.0); HEMOGLOBIN 12.7 G/DL (12.0-16.0); LYMPHOCYTES % (AUTO) 24.4 % (20.0-45.0); MEAN CORPUSCULAR VOLUME 90 FL (80-99); MONOCYTES % (AUTO) 8.4 % (1.0-10.0); NEUTROPHILS % (AUTO) 63.7 % (45.0-75.0); PLATELET COUNT 191 K/UL (150-450); RED BLOOD COUNT 4.24 M/UL (4.20-5.40); RED CELL DISTRIBUTION WIDTH 13.8 % (11.6-14.8); WHITE BLOOD COUNT 5.4 K/UL (4.8-10.8)
[2020-02-24] MEDS ORDERED: FAMOTIDINE20 MG ORAL (20:39)
--- NOTE | 2020-02-24 20:42 | Diagnostic Imaging Report ---
EXAM: XR Chest, 1 View CLINICAL HISTORY: CP TECHNIQUE: Frontal view of the chest. COMPARISON: None FINDINGS: Lungs: Unremarkable. No consolidation. Pleural space: Unremarkable. No pneumothorax. Heart: Unremarkable. No cardiomegaly. Mediastinum: Unremarkable. Bones/joints: Unremarkable. IMPRESSION: No acute cardiopulmonary process.
[2020-02-24 20:55] LABS: CALCIUM 9.2 MG/DL (8.5-10.1); CREATININE 1.6 MG/DL (0.55-1.30); POTASSIUM 3.1 MMOL/L (3.5-5.1)
[2020-02-24 21:00] VITALS: BP 134/76
[2020-02-24 21:00] LABS: ALBUMIN 3.8 G/DL (3.4-5.0); ALBUMIN/GLOBULIN RATIO 0.7 (1.0-2.7); BILIRUBIN,TOTAL 0.8 MG/DL (0.2-1.0)
--- NOTE | 2020-02-24 21:00 | NUR ---
ED Nurse Note: Meds given effective, pt is quietly sleeping, v/s stable, nad noted, will continue to closely monitor.
[2020-02-24] MEDS ORDERED: PREDNISONE20 MG ORAL (21:40)
[2020-02-24 21:45] VITALS: BP 134/76
--- NOTE | 2020-02-25 15:44 | Cardiology Report ---
APPROVED REPORT EKG Measurement Heart [id number] <Conclusion> Normal sinus rhythm Anterior infarct, age undetermined Abnormal ECG
== END 2020-02-24 21:45 | disposition home or self-care (01) ==
LOC: EMR 20:17
DX: K21.9 Gastro-esophageal reflux disease without esophagitis (principal); J40 Bronchitis, not specified as acute or chronic; R79.89 Other specified abnormal findings of blood chemistry; I10 Essential (primary) hypertension; B20 Human immunodeficiency virus [HIV] disease
CPT/HCPCS: 36415; 71045; 80053; 83690; 84484; 85025; 93005; 96361; 96374; S0028; Z7502; 99284

== ENCOUNTER 2020-04-09 19:20 | Emergency (ER) | payer OTHER ==
[~2020-04-09] VITALS: Ht 162.6 cm; Wt 91.6 kg
[~2020-04-09 19:20] MED LIST changes: +FAMOTIDINE20 MG ORAL
--- NOTE | 2020-04-09 19:30 | NUR ---
ED Nurse Note: PT walked in from home vitals stable, axox4. She is ambulatory with a steady gait. states that she has had a cold now for two weeks. She has weezes bilateraly on auscultation. She states that she is a smoker. Her breathing is even and unlabored on assesment. She is resting comfortably.
--- NOTE | 2020-04-09 20:02 | Emergency Room Report ---
History of Present Illness General Chief Complaint: Upper Respiratory Illness Source: Patient Present Illness HPI 44-year-old female history of smoking history of marijuana use, presents with shortness of breath, wheezing, nasal congestion, cough, alleviated with albuterol, aggravated by her upper respiratory symptoms, severity is mild, intermittent no chest pain no dyspnea on exertion patient presents for ev aluation and treatment Allergies: Coded Allergies: No Known Allergies (Unverified , 08/06/14) COVID-19 Screening Contact w/high risk pt: No Recent Travel to affected area: No Experienced COVID-19 symptoms?: No COVID-19 symptoms experienced: Shortness of Breath, Cough, Flu-Like Symptoms 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 COVID-19 Screening: Negative COVID-19 COVID-19 Testing Source: clinic Patient History Past Medical History: see triage record Social History: Reports: smoking - Former smoker, drug use - Marijuana use Last Menstrual Period: 04/09/20 Reviewed Nursing Documentation: PMH: Agreed; PSxH: Agreed Nursing Documentation-PMH Past Medical History: No History, Except For Hx Cardiac Problems: Yes - HIV Hx Hypertension: Yes Hx Pacemaker: No Hx Asthma: No Hx COPD: No - BRONCHITIS Hx Diabetes: No Hx Cancer: No Hx Gastrointestinal Problems: No Hx Dialysis: No Hx Neurological Problems: No Hx Cerebrovascular Accident: No Hx Seizures: No Review of Systems All Other Systems: negative except mentioned in HPI Physical Exam Vital Signs Date Time Temp Pulse Resp B/P (MAP) Pulse Ox O2 Delivery O2 Flow Rate FiO2 04/09/20 19:24 98.4 82 18 147/97 (114) 96 Room Air Sp02 EP Interpretation: reviewed, normal General Appearance: well appearing, no apparent distress, alert Head: normocephalic, atraumatic Eyes: bilateral eye PERRL, bilateral eye EOMI ENT: uvula midline, moist mucus membranes Neck: supple, thyroid normal, supple/symm/no masses Respiratory: no respiratory distress, no retraction, no accessory muscle use, decreased breath sounds - Bilaterally, poor air movement Cardiovascular #1: normal peripheral pulses, regular rate, rhythm, no edema, no gallop, no murmur Gastrointestinal: non tender, soft, no guarding, no rebound Musculoskeletal: normal inspection Neurologic: alert, oriented x3 Psychiatric: mood/affect normal Skin: no rash, warm/dry Medical Decision Making Diagnostic Impression: Primary Impression: Upper respiratory infection Qualified Codes: J06.9 - Acute upper respiratory infection, unspecified Additional Impression: COPD exacerbation ER Course 44-year-old female presents with shortness of breath poor air movement on exam, patient improved with Combivent administration, Decadron Return precautions discussed Covid handout given to patient Disposition home with return precautions follow-up with PCP Chest X-Ray Diagnostic Results Chest X-Ray Diagnostic Results : Chest X-Ray Ordered: Yes # of Views/Limited/Complete: 1 View Indication: Shortness of Breath EP Interpretation: Yes Interpretation: no consolidation, no effusion, no pneumothorax, no acute cardiopulmonary disease Impression: No acute disease Electronically Signed by: Rayray Uriarte MD Last Vital Signs Date Time Temp Pulse Resp B/P (MAP) Pulse Ox O2 Delivery O2 Flow Rate FiO2 04/09/20 19:24 98.4 82 18 147/97 (114) 96 Room Air Disposition: HOME, SELF-CARE Condition: Stable Referrals: [facility] Patient Instructions: Chronic Obstructive Pulmonary Disease Exacerbation, [id number] Additional Instructions: The patient was provided with discharge instructions, notified to follow-up with a primary care doctor and or specialist in the next 24-48 hours, and to return to the ED if they have worsening of their symptoms. Please note that this report is being documented using ACell technology. This can lead to erroneous entry secondary to incorrect interpretation by the dictating instrument. Rayray Uriarte MD Apr 09, 2020 20:02
[2020-04-09 20:09] VITALS: BP 145/96
[2020-04-09 21:05] VITALS: BP 144/85
--- NOTE | 2020-04-10 06:32 | NUR ---
ER DISCHARGE NOTE: Patient is cleared to be discharged per ERMD, pt is aox4, on room air, with stable vital signs. pt was given dc and prescription instructions, pt was able to verbalize understanding, pt id band removed. pt is able to ambulate with steady gait. pt took all belongings.
--- NOTE | 2020-04-10 14:01 | Diagnostic Imaging Report ---
Indication: Cough Technique: One view of the chest Comparison: 02/24/2020 Findings: Lungs and pleural spaces are clear. Heart size is normal. No significant change Impression: No acute process
== END 2020-04-09 21:05 | disposition home or self-care (01) ==
LOC: EMR 21:05
DX: J06.9 Acute upper respiratory infection, unspecified (principal); J44.1 Chronic obstructive pulmonary disease with (acute) exacerbation; F12.90 Cannabis use, unspecified, uncomplicated; I10 Essential (primary) hypertension; Z86.19 Personal history of other infectious and parasitic diseases
CPT/HCPCS: 71045; J8540; U0002; Z7502; 99283

== ENCOUNTER 2020-05-05 19:07 | Emergency (ER) | payer OTHER ==
[~2020-05-05] VITALS: Ht 162.6 cm; Wt 86.2 kg
--- NOTE | 2020-05-05 19:25 | Emergency Room Report ---
History of Present Illness General Chief Complaint: Upper Respiratory Illness Present Illness HPI Patient is a 45-year-old female presents for persistent cough for approximately 1 month. She had been able to see her primary care physician. States she had prior history of COPD in the past. Reports having HIV as well as previous negative coronavirus test approximate 1 month ago. Denies any fever or chills. Denies any shortness of breath. Intermittent episodes of cough. 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 Patient History Past Medical History: see triage record Reviewed Nursing Documentation: PMH: Agreed; PSxH: Agreed Nursing Documentation-PMH Hx Cardiac Problems: Yes - HIV Hx Hypertension: Yes Hx Pacemaker: No Hx Asthma: No Hx COPD: No - BRONCHITIS Hx Diabetes: No Hx Cancer: No Hx Gastrointestinal Problems: No Hx Dialysis: No Hx Neurological Problems: No Hx Cerebrovascular Accident: No Hx Seizures: No Review of Systems All Other Systems: negative except mentioned in HPI Physical Exam Vital Signs Date Time Temp Pulse Resp B/P (MAP) Pulse Ox O2 Delivery O2 Flow Rate FiO2 05/05/20 19:13 98.2 99 18 110/73 (85) 95 Room Air General Appearance: well appearing, no apparent distress, alert, GCS 15 Head: normocephalic, atraumatic ENT: hearing grossly normal, normal voice, other - thrush Neck: full range of motion, supple Respiratory: lungs clear, normal breath sounds, no respiratory distress, speaking full sentences Cardiovascular #1: normal inspection, no edema Gastrointestinal: normal inspection, soft Musculoskeletal: normal inspection, no calf tenderness Neurologic: alert, motor strength/tone normal, component inspector III-XII nml as tested, oriented x3, normal gait Psychiatric: mood/affect normal Skin: no rash Medical Decision Making Last Vital Signs Date Time Temp Pulse Resp B/P (MAP) Pulse Ox O2 Delivery O2 Flow Rate FiO2 05/05/20 19:13 98.2 99 18 110/73 (85) 95 Room Air Status: improved Disposition: HOME, SELF-CARE Iván Parikh MD May 05, 2020 19:24
[2020-05-05] MEDS ORDERED: DIFLUCAN100 MG ORAL (19:29)
[2020-05-05] MEDS ORDERED: Fluconazole 150mg tab ORAL ONE (19:30)
[2020-05-05 19:45] VITALS: BP 110/73
--- NOTE | 2020-05-05 19:45 | NUR ---
ED Nurse Note: pt presents to ED c/o cough x1 month, pt states that she has h/o bronchitis and that she has been trying to get an appt to see her PCP for the cough. pt reports px that is exacerbated by deep breaths. denies fevers or chills at this time
--- NOTE | 2020-05-05 19:48 | Diagnostic Imaging Report ---
EXAM: XR Chest, 1 View CLINICAL HISTORY: COUGH TECHNIQUE: Frontal view of the chest. COMPARISON: 04/09/20 FINDINGS: Lungs: No significant abnormality. No consolidation. Pleural space: No significant abnormality. No pneumothorax. Heart: No significant abnormality. No cardiomegaly. Mediastinum: No significant abnormality. Bones/joints: No acute osseous abnormality. IMPRESSION: No acute cardiopulmonary process.
[2020-05-05] MEDS ORDERED: VENTOLIN HFA18 GM INH (20:08)
[2020-05-05] MEDS ORDERED: GUAIFENESIN DM118 M1 ORAL (20:08)
[2020-05-05] MEDS ORDERED: ALBUTEROL2.5 MG/3 M HHN ×2 (20:08)
[2020-05-05] MEDS ORDERED: TESSALON PERLE100 MG ORAL (20:19)
== END 2020-05-05 20:25 | disposition home or self-care (01) ==
LOC: EMR 19:26
DX: R05 Cough (principal); B20 Human immunodeficiency virus [HIV] disease; J44.9 Chronic obstructive pulmonary disease, unspecified; I10 Essential (primary) hypertension
CPT/HCPCS: 71045; Z7502; 99283

== ENCOUNTER 2020-05-15 16:00 | Emergency (ER) | payer OTHER ==
[~2020-05-15] VITALS: Ht 162.6 cm; Wt 81.6 kg
[~2020-05-15 16:00] MED LIST changes: +ALBUTEROL2.5 MG/3 M HHN; +DIFLUCAN100 MG ORAL
--- NOTE | 2020-05-15 16:40 | Emergency Room Report ---
History of Present Illness General Chief Complaint: Upper Respiratory Illness Source: Patient Present Illness HPI Patient presents with increased cough and wheezing for last 24 hours. The patient is using Robitussin-DM as well as Claritin and also her albuterol inhaler. She does herself wheezing. Denies any chest pain at this time. There is no nausea vomiting or diarrhea. The patient had been evaluated here once in March once in April. The first time she tested negative for Covid. She has had no repeat testing. She was unable to fill Robitussin-DM recently and had a prescription for Tessalon Perles which helped her quite a bit. She has lost most of the prescription. She denies productive cough at this time. She denies chest pain. The patient has a rash in the gluteal perianal area. She denies exposure to Covid positive contacts. No sore throat, chest pain, palpitations, dysuria, abdominal pain, joint pain, depression, anxiety, visual changes, dizziness, headache. The patient is HIV positive and stable on retrovirals. 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 COVID-19 Screening: Negative COVID-19 COVID-19 Testing Source: 04/2020 Patient History Past Medical History: see triage record Social History: Denies: smoking, alcohol use, drug use Social History Narrative with daughter Now: No Reviewed Nursing Documentation: PMH: Agreed; PSxH: Agreed Nursing Documentation-PMH Past Medical History: No History, Except For Hx Cardiac Problems: Yes - HIV Hx Hypertension: Yes Hx Pacemaker: No Hx Asthma: No Hx COPD: No - BRONCHITIS Hx Diabetes: No Hx Cancer: No Hx Gastrointestinal Problems: No Hx Dialysis: No Hx Neurological Problems: No Hx Cerebrovascular Accident: No Hx Seizures: No Review of Systems All Other Systems: negative except mentioned in HPI Physical Exam Vital Signs Date Time Temp Pulse Resp B/P (MAP) Pulse Ox O2 Delivery O2 Flow Rate FiO2 05/15/20 16:07 99.0 77 16 149/88 (108) 95 Room Air Sat 100% at bedside. Sp02 EP Interpretation: reviewed, normal General Appearance: well appearing, no apparent distress, GCS 15, non-toxic Head: normocephalic Eyes: bilateral eye normal inspection, bilateral eye PERRL, bilateral eye EOMI ENT: moist mucus membranes Neck: supple Respiratory: wheezing, expiration, other - paroxysms of coughing Cardiovascular #1: regular rate, rhythm Cardiovascular #2: 2+ radial (R) Gastrointestinal: normal inspection, non tender, overweight Musculoskeletal: back normal, normal range of motion, no calf tenderness, gait/station normal Neurologic: alert, oriented x3, grossly normal Psychiatric: mood/affect normal Skin: no rash, warm/dry Medical Decision Making Diagnostic Impression: Primary Impression: Asthmatic bronchitis Qualified Codes: J45.41 - Moderate persistent asthma with (acute) exacerbation Additional Impression: Perianal rash ER Course Patient with history of bronchitis in the past presents with wheezing and nonproductive cough. Differential includes Covid, asthmatic bronchitis, bronchitis, pneumonia amongst others. Affected oxygen saturation is 100% makes significant infiltrative process less likely. The patient however does need to be treated with bronchodilators at this time. She has been on prednisone in the past and Solu-Medrol will be administered also. This presentation is not consistent with Covid infection. The perianal rash is consistent with either yeast or superficial cellulitis. Topical treatment is indicated. Chest x-ray without infiltrate. Patient remarkably improved with breathing treatments and Solu-Medrol. Discussed findings and treatment plan with patient. Patient improved and stable for outpatient observation and treatment. Rhythm Strip Diag. Results EP Interpretation: yes Rhythm: NSR, no PVC's, no ectopy Chest X-Ray Diagnostic Results Chest X-Ray Diagnostic Results : Chest X-Ray Ordered: Yes # of Views/Limited/Complete: 1 View Indication: Other EP Interpretation: Yes Interpretation: no consolidation, no effusion, no pneumothorax Impression: No acute disease Electronically Signed by: Electronically signed by Florentin Melendez MD Last Vital Signs Date Time Temp Pulse Resp B/P (MAP) Pulse Ox O2 Delivery O2 Flow Rate FiO2 05/15/20 17:21 84 28 100 Room Air 21 73 15 100 05/15/20 17:05 99.0 149/88 Status: improved Disposition: HOME, SELF-CARE Condition: Improved Scripts Benzonatate* (TESSALON PERLE*) 100 Mg Capsule 100 MG ORAL THREE TIMES A DAY PRN for For Cough, #30 PERLE Prov: Florentin Melendez MD 05/15/20 Prednisone* (PREDNISONE*) 20 Mg Tablet 40 MG ORAL DAILY, #10 TAB Prov: Florentin Melendez MD 05/15/20 Ipratropium [place] (ATROVENT HFA) 12.9 Gm Hfa.aer.ad 2 PUFFS IH Q6HR PRN for wheezing, #1 UNIT Prov: Florentin Melendez MD 05/15/20 Bacitracin (Bacitracin) 28.4 Gm Oint...g. 1 APPLIC TOPIC BID, #20 GM Prov: Florentin Melendez MD 05/15/20 Clotrimazole* (LOTRIMIN*) 15 Gm Cream..g. 1 APPLIC TOPIC TWICE A DAY, #14 GM 1 Refill Prov: Florentin Melendez MD 05/15/20 Florentin Melendez MD May 15, 2020 16:40
[2020-05-15] MEDS ORDERED: Ipratropium 0.02% Inh Soln 2.5ml UD HHN ONE (16:45)
[2020-05-15] MEDS ORDERED: Albuterol ud Inhalation HHN ONE (16:45)
[2020-05-15] MEDS ORDERED: Solu-MEDROL 125mg Inj IVP ONE (16:45)
--- NOTE | 2020-05-15 16:55 | NUR ---
Note undone in [facility] - 05/15/20 at 1704 by ANIKET 45 y/o female presented to ER with increased non-productive cough and wheezing which has increased in the last 24 hours. She reported that she has been coughing since Mar 2020. She has used OTC Robitussin and Clartin which has calmed her symptoms some but it is still present. She reports that she is diagnosed with bronchitis and uses Albuterol routinely. She denies nausea, vomiting or SOB. V/S slightly elvate Addendum: 05/15/20 at 1700 by ANIKET Amendment undone in [facility] - 05/15/20 at 1704 by ANIKET 45 y/o female presented to ER with increased non-productive cough and wheezing which has increased in the last 24 hours. She reported that she has been coughing since Mar 2020. She has used OTC Robitussin and Clartin which has calmed her symptoms some but it is still present. She reports that she is diagnosed with bronchitis and uses Albuterol routinely. She denies nausea, vomiting or SOB. V/S slightly elevated with 149/88 with low-grade temp of 99.0. AAOX4. Independent with ADLs. Continent of B/B. Able to voice all needs and concerns without difficulty. 20G hand Medication administered and tolerated without difficulty. Awaiting respiratory for breathing treatment.
[2020-05-15 17:05] VITALS: BP 149/88
--- NOTE | 2020-05-15 17:06 | Diagnostic Imaging Report ---
Indication: Cough Technique: One view of the chest Comparison: 05/05/2020 Findings: The heart is upper limits normal in size. Lungs and pleural spaces are clear. There is no significant interim change Impression: No acute process
[2020-05-15] MEDS ORDERED: BACITRACIN15 GM TOPIC (17:28)
[2020-05-15] MEDS ORDERED: ATROVENT HFA12.9 GM IH (17:28)
[2020-05-15] MEDS ORDERED: PREDNISONE20 MG ORAL (17:28)
[2020-05-15] MEDS ORDERED: CLOTRIMAZOLE15 GM TOPIC (17:28)
[2020-05-15] MEDS ORDERED: ROBITUSSIN COU237 M2 PO ×2 (17:28)
--- NOTE | 2020-05-15 17:36 | NUR ---
Breathing Tx in progress
[2020-05-15] MEDS ORDERED: TESSALON PERLE100 MG ORAL ×3 (18:02→18:04)
== END 2020-05-15 18:21 | disposition home or self-care (01) ==
LOC: EMR 16:30
DX: J45.41 Moderate persistent asthma with (acute) exacerbation (principal); R21 Rash and other nonspecific skin eruption; I10 Essential (primary) hypertension; B20 Human immunodeficiency virus [HIV] disease
CPT/HCPCS: 71045; 94640; 96374; J2930; Z7502; 99284

== ENCOUNTER 2020-06-02 00:23 | Emergency (ER) | payer OTHER ==
[~2020-06-02] VITALS: Ht 162.6 cm; Wt 86.2 kg
[~2020-06-02 00:23] MED LIST changes: +ATROVENT HFA12.9 GM IH; +BACITRACIN15 GM TOPIC; +CLOTRIMAZOLE15 GM TOPIC; +ROBITUSSIN COU237 M2 PO
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
[2020-06-02] MEDS ORDERED: Ketorolac 30mg Inj IM ONE (01:00)
[2020-06-02] MEDS ORDERED: Methocarbamol 750mg tab ORAL ONE (01:00)
[2020-06-02] MEDS ORDERED: IBUPROFEN600 M1 ORAL (01:48)
[2020-06-02] MEDS ORDERED: ROBAXIN-750750 MG PO (01:48)
[2020-06-02 02:32] VITALS: BP 146/97
--- NOTE | 2020-06-02 02:43 | Diagnostic Imaging Report ---
EXAM: CT Thoracic Spine Without Intravenous Contrast CLINICAL HISTORY: PAIN TECHNIQUE: Axial computed tomography images of the thoracic spine without intravenous contrast. CTDI is 10.90 mGy and DLP is 410.40 mGy-cm. One or more of the following dose reduction techniques were used: automated exposure control, adjustment of the mA and/or kV according to patient size, use of iterative reconstruction technique. COMPARISON: No relevant prior studies available. FINDINGS: Vertebrae: See below. Discs/spinal canal/neural foramina: Degenerative changes in the mid to upper thoracic spine. No spinal canal stenosis. Soft tissues: Unremarkable. Lungs: There is multifocal bronchiolitis mostly in the lung bases. IMPRESSION: 1. Degenerative changes in the mid to upper thoracic spine. 2. Multifocal bronchiolitis mostly in the lung bases.
--- NOTE | 2020-06-02 03:02 | Diagnostic Imaging Report ---
EXAM: CT Lumbar Spine Without Intravenous Contrast CLINICAL HISTORY: PAIN TECHNIQUE: Axial computed tomography images of the lumbar spine without intravenous contrast. CTDI is 13.20 mGy and DLP is 513.50 mGy-cm. One or more of the following dose reduction techniques were used: automated exposure control, adjustment of the mA and/or kV according to patient size, use of iterative reconstruction technique. COMPARISON: No relevant prior studies available. FINDINGS: Vertebrae: Unremarkable. No acute fracture. Discs/spinal canal/neural foramina: No acute findings. No spinal canal stenosis. Soft tissues: Unremarkable. Kidneys and ureters: There is a 3.6 x 3.0 cm right renal cyst. IMPRESSION: No acute abdominal or pelvic pathology.
== END 2020-06-02 03:00 | disposition home or self-care (01) ==
LOC: EMR 00:42
DX: M54.5 Low back pain (principal); V43.52XA Car driver injured in collision with other type car in traffic accident, initial encounter; Y92.410 Unspecified street and highway as the place of occurrence of the external cause; I10 Essential (primary) hypertension
CPT/HCPCS: 72128; 72131; 96372; J1885; Z7502; 99284